=== PATIENT | male | born 1960 | race Caucasian/White ===

== ENCOUNTER → 2018-03-06 | Outpatient (CLI) | payer BC ==
[~2018-03-06] MED LIST: ALBUAER2 INH; ASPI-319 PO; IBUP600T44 PO; LOSA50TA6 PO; OPTIRAY 320 IV PRN; SIMV20TA2 PO; SNG10 PO; UNKNOWN INHALER INH
--- NOTE | 2018-03-06 17:08 | DIAGNOSTIC IMAGING REPORT ---
ABDOMEN AND PELVIS CT WITH IV AND ORAL CONTRAST CT DOSE: HISTORY: Left lower quadrant abdominal pain. TECHNIQUE: Multiaxial CT images of the abdomen and pelvis were performed following the use of intravenous and oral contrast. A dose lowering technique was utilized adhering to the principles of ALARA. COMPARISON STUDY: None. FINDINGS: There is a 3 mm nodule within the base of the right lower lobe on image 31. Small fat-containing right-sided Bochdalek hernia. No pneumoperitoneum. No pneumatosis. No suspicious lytic or blastic osseous lesions. Tiny fat-containing right-sided inguinal hernia. Slightly nodular contour to the liver. This may represent developing cirrhosis. No hepatic or splenic masses. The adrenal glands and pancreas are unremarkable. The kidneys enhance normally. No hydronephrosis. Punctate nonobstructing stone within the upper pole the right kidney. Small bilateral peripelvic renal cysts. Mild bilateral perinephric edema which is likely chronic. Normal bladder. There is a left circumaortic renal vein. No retroperitoneal lymphadenopathy. Focal bowel wall thickening within the distal sigmoid colon with an inflamed diverticulum and minimal pericolonic fat stranding. This is consistent with acute diverticulitis. No perforation or abscess at this time. No evidence for bowel obstruction. Normal appendix. IMPRESSION: 1. Acute distal sigmoid diverticulitis. No perforation or abscess. Follow-up colonoscopy is suggested once the patient's diverticulitis has resolved to exclude the less likely possibility of an underlying lesion. 2. No bowel obstruction. 3. Normal appendix. 4. Right-sided nephrolithiasis. No hydronephrosis. 5. Slightly nodular contour to the liver. This may represent developing cirrhosis. 6. Additional findings as described above. Electronically signed by: Fabian Espino M.D. 03/06/2018 5:07 PM Dictated Date/Time: 03/06/2018 4:57 PM
== END | disposition home or self-care (01) ==
LOC: C.CTS 15:53
PROVIDERS: ATTEND Family Medicine
DX: R10.32 Left lower quadrant pain (principal); R19.4 Change in bowel habit; K59.00 Constipation, unspecified; K57.32 Diverticulitis of large intestine without perforation or abscess without bleeding; N20.0 Calculus of kidney

== ENCOUNTER 2019-06-05 06:51 | Inpatient (IN) ==
--- OUTSIDE RECORDS SUMMARY | 2019-06-05 06:54 | External Medical Summary | Continuity of Care Document ---
:1960 Author Name Nadia Fowler, Provider Address Unavailable Unavailable , Care Team Providers Name Role Phone Maxi Fowler, Smooth 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 Refills: 0 Proventil HFA AERS; INHALE 2 PUFFS EVERY 4 HOURS NEEDED Refills: 0 Aspirin 81 MG TABS; TAKE 1 TABLET DAILY. Refills: 0 Metoprolol Succinate ER 50 MG Oral Table t Extended Release 24 Hour; TAKE 2 TABLETS DAILY. Refills: 0 Asmanex (120 Metered Doses) 220 MCG/INH Inhalation Aerosol Powder Breath Activated; INHALE 1 PUFFS TWICE DAILY Refills: 0 Singulair 10 MG Oral Tablet; TAKE 1 TABLET DAILY. Refills: 0 Simvastatin 20 MG Oral Tablet; TAKE 1 TABLET DAILY AT BEDTIM E. Refills: 0 Losartan Potassium TABS Refills: 0 Procedures Procedures not documented Immunizations Td Comments:Approx 2008 Influenza Comments:Approx Mar 2014 Family History Unknown Family Member Family history of diabetes mellitus (V18.0) Status: Active Comments: Family History (Z83.3) Family history of cardiac disorder (V17.49) Status: Active Comments: Family History (Z82.49) Social History - Smoking Status Never smoker Plan of Treatment Planned Observations Planned Goals not documented Results No Known Results Results not documented Encounters Appointment; Smooth German M.D. 24-Jun-2014 10:00 Encounter Diagnosis: Problem not documented
[2019-06-05] MEDS ORDERED: SODIUM CHLORIDE 0.9% 1000ML 1,000 ML IV STA (07:07)
[2019-06-05 07:22] LABS: Basophils # (auto) 0.08 K/uL (0-0.2); Basophils % (auto) 1.2 %; Eosinophils % (auto) 3.1 %; Hematocrit (blood only) 47.1 % (42-52); Hemoglobin 16.7 g/dL (14.0-18.0); Immature Granulocytes # (auto) 0.01 K/uL (0.00-0.02); Immature Granulocytes % (auto) 0.2 %; Lymphocytes # (auto) 2.46 K/uL (1.2-3.4); Mean Corpuscular Hemoglobin 32.1 pg (25-34); Mean Corpuscular Hgb Conc 35.5 g/dL (32-36); Mean Corpuscular Volume 90.6 fL (80-100); Mean Platelet Volume 9.3 fL (7.4-10.4); Monocytes # (auto) 0.71 K/uL (0.11-0.59); Neutrophils # (auto) 3.02 K/uL (1.4-6.5); Neutrophils % (auto) 46.5 %; Platelet Count 332 K/uL (130-400); RDW Coefficient of Variation 12.9 % (11.5-14.5); RDW Standard Deviation 42.6 fL (36.4-46.3); White Blood Count 6.48 K/uL (4.8-10.8)
--- NOTE | 2019-06-05 07:41 | XRay Report ---
XR chest 1V portable CLINICAL HISTORY: 58 years-old Male presenting with Chest Pain, atrial fibrillation. TECHNIQUE: Portable upright AP view of the chest was obtained. COMPARISON: 06/16/2015. FINDINGS: Cardiac silhouette mildly enlarged. Pulmonary vascular may be minimally prominent. No focal opacity. No large effusion or pneumothorax. Degenerative changes of the thoracic spine. Upper abdomen normal. IMPRESSION: 1. Mild cardiomegaly with trace volume overload. No advanced congestive change or pulmonary edema. Electronically signed by: Nicko Santoyo M.D. 06/05/2019 7:40 AM
[2019-06-05 07:42] LABS: Alanine Aminotransferase 46 U/L (12-78); Albumin Level 3.7 gm/dl (3.4-5.0); Aspartate Aminotransferase 21 U/L (15-37); BUN Creatinine Ratio 14.6 (10-20); Blood Urea Nitrogen 16 mg/dl (7-18); Calcium 8.9 mg/dl (8.5-10.1); Carbon Dioxide 29 mmol/L (21-32); Chloride 105 mmol/L (98-107); Est GFR (African American) 89.2; Glucose 115 mg/dl (70-99); Lipase 272 U/L (73-393); Potassium 3.9 mmol/L (3.5-5.1); Sodium 139 mmol/L (136-145)
[2019-06-05 07:53] LABS: Albumin Globulin Ratio 0.9 (0.9-2); Alkaline Phosphatase 102 U/L (45-117); Bilirubin,Total 0.6 mg/dl (0.2-1); Phosphorus 3.2 mg/dl (2.5-4.9); Total Protein 7.7 gm/dl (6.4-8.2); Troponin I < 0.015 ng/ml (0-0.045)
[2019-06-05] MEDS ORDERED: dilTIAZem HCl 5 MG/ML 5 ML VIAL IV STA ×2 (08:51→10:36)
[2019-06-05] MEDS ORDERED: dilTIAZem HCl 125 MG in DEXTROSE 5% 100 ML IV STA (11:48)
--- NOTE | 2019-06-05 12:05 | History & Physical Report ---
Date of Service June 05, 2019 Assessment & Plan (1) Atrial fibrillation with RVR: - Admit to PCU - Continue on cardizem gtt, trial of two doses in the ER without improvement, started gtt in the ER. - Continue metoprolol tartrate 50 mg QAM, valsartan 320 mg QAM, HCTZ 12.5 QAM - Trend troponins, initial set is neg, no concern for cardiac event. - Check 2D echo - EKG reviewed, as above - Consult cardiology, Dr. Mckeon (2) HTN (hypertension): - Continue antihypertensives as above (3) HLD (hyperlipidemia): - Cont atorvastatin 80 mg HS, recheck lipid panel with am labs (4) Obesity (BMI 30.0-34.9): - Diet and exercise to be encouraged upon discharged after Afib breaks (5) Elevated glucose: - Glucose slightly elevated at 115 at time of admission - will recheck A1C with am labs - Allow heart healthy diet CODE: FULL Dispo: From home, likley to remain in the hospital for 1-2 days. History of Present Illness Primary Care Provider: Wilbert Vee MD This is a 58 yo M with PMHx of afib on xarelto about 10 years ago, HTN, HLD, and obesity with BMI of 33.5 who presents to the ER after onset of heart palpitations and not feeling well which started around 5:30AM. His is present at bedside and supports the history. He recognized the fast heart beat and felt that this was like previous episodes of afib. He was previously hospitalized and converted chemically, then was discharged home and had follow up with Dr. Mckeon in cardiology. He denies any lightheadedness, dizziness, chest pain, or shortness of breath. Afib with RVR in EKG with rates in the 150 at time of arrival Other labs appear wnl, glucose slightly elevated at 115. Pt notes he was supposed to have fasting labs for A1C completed soon. Allergies Allergy/AdvReac Type Severity Reaction Status Date / Time No Known Allergies Allergy Mild Unverified 06/05/19 07:33 Home Medications Home Medications Medication Instructions Recorded Confirmed Type albuterol sulfate 2 puff INHALATION Q4H PRN 06/05/19 06/05/19 History aspirin 81 mg PO HS 06/05/19 06/05/19 History atorvastatin 80 mg PO HS 06/05/19 06/05/19 History hydrochlorothiazide 12.5 mg PO QAM 06/05/19 06/05/19 History ibuprofen 200 mg PO Q6H PRN 06/05/19 06/05/19 History metoprolol tartrate 50 mg PO QAM 06/05/19 06/05/19 History montelukast 10 mg PO HS 06/05/19 06/05/19 History valsartan 320 mg PO QAM 06/05/19 06/05/19 History Past Med/Surg History Medical History Episodic atrial fibrillation Family History Other No pertinent family history in first degree relatives Social History Preferred Language: Polish Communication Ability: Effective Summons Server Required: No Beliefs That Will Affect Care: None Current Living Situation: Spouse Other Information That Helps Us Care for You: No Feels Safe at Home: Yes Safety Concerns: Feels Safe At This Time Smoking Status: Never smoker Do You Dip or Chew Tobacco: No ; Second Hand Exposure: No ; Tobacco Cessation Education Requested by Patient: No Hx Alcohol Use: Yes Hx Substance Use: No Review of Systems Review of Systems: Constitutional: No fever, sweats or chills Eyes: No diplopia, no worsening or blurred vision ENT: normal hearing, no trouble swallowing Respiratory: No cough, sputum, dyspnea at rest or on exertion Cardiovascular: No chest pain, tightness or palpitations Abdomen: No pain, nausea, vomiting, diarrhea or constipation Musculoskeletal: No joint pain, calf pain, swelling Neurologic: No weakness, numbness/tingling, or balance problems Psychiatric: No anxiety or depression Skin: No rash or itch Physical Exam Physical Exam: General: awake, alert, no apparent distress, + obese Head: Normocephalic, atraumatic ENT: PERRL, EOMI, no pharyngeal exudate, mucous membranes moist Chest: Clear to auscultation, on room air, no adventitious breath sounds Cardiac: irregularly irregular, rapid with HR ~ 140, no murmur, no JVD Abdominal: NABS x 4 quadrants, soft, nontender to palpation, no rebound, guarding or tenderness Extremities: Normal inspection, no peripheral edema or erythema, calfs nontender to palpation Psych: Normal mood and affect Skin: no rashes Neuro: AAO x 3, strength intact bilaterally and related 5/5, no motor deficits, speech is clear, no peripheral sensory deficits Results & Data Vital Signs (Past 12 Hours) Vital Signs Temp Pulse Pulse Resp BP Pulse Ox 06/05/19 11:01 137 H 13 06/05/19 11:00 99 H 14 133/85 06/05/19 10:45 162 H 21 06/05/19 10:30 142 H 13 121/91 06/05/19 10:15 147 H 17 06/05/19 10:00 147 H 134/73 06/05/19 09:45 145 H 22 06/05/19 09:30 154 H 19 06/05/19 09:15 135 H 11 L 06/05/19 09:09 119 H 06/05/19 09:00 149 H 15 123/82 06/05/19 08:45 163 H 17 06/05/19 08:31 155 H 14 06/05/19 08:30 150 H 14 125/90 06/05/19 08:15 152 H 21 06/05/19 08:01 150 H 15 06/05/19 08:00 147 H 14 06/05/19 07:46 157 H 18 06/05/19 07:44 144 H 14 134/78 06/05/19 07:30 149 H 22 06/05/19 07:23 159 H 06/05/19 07:15 147 H 15 06/05/19 07:09 161 H 13 06/05/19 07:00 36.5 C 89 16 148/79 H 98 Diagnostic Findings XR chest 1V portable CLINICAL HISTORY: 58 years-old Male presenting with Chest Pain, atrial fibrillation. TECHNIQUE: Portable upright AP view of the chest was obtained. COMPARISON: 06/16/2015. FINDINGS: Cardiac silhouette mildly enlarged. Pulmonary vascular may be minimally prominent. No focal opacity. No large effusion or pneumothorax. Degenerative changes of the thoracic spine. Upper abdomen normal. IMPRESSION: 1. Mild cardiomegaly with trace volume overload. No advanced congestive change or pulmonary edema. Code Status & VTE Plan Code Status Full code VTE Prophylaxis Plan VTE Prophylaxis will be ordered: Yes Supervising Physician Co-Signing Physician Notes I supervised Unique Kee PA-C on this patient's care. I examined the patient today independently of her. I discussed the plan of care with her with the plan being as written in her note except for any following changes/exceptions: None. 58yo M w/ hx of remote afib with cardioversion who presents with another episode of afib with RVR. Patient noted palpations at approx. 5:30am this morning. He notes palpitations, but also reports some "dull" ache in the neck and arms bilaterally. He had an episode about 8 years ago and was chemically cardioverted at that time without any further episodes until now. At baseline, he has HTN, but no other Chads-Vasc risk factors, making him a Chads-Vasc of 1. - Will rate-control with beta-chinedu and calcium channel chinedu - Restart Xarelto which he took without issue for several years - Consult Dr. Mckeon, his normal coal chemist. PG Care Time/CCT Total # of Minutes Spent Total Time Spent with Patient: Total time spent is greater than 50% in coordination of care (as documented) at patient's floor/unit and/or counseling patient:
[2019-06-05] MEDS ORDERED: dilTIAZem HCL 30 MG TAB PO ONE (13:43)
[2019-06-05] MEDS ORDERED: ONDANSETRON INJ 2 MG/ML 2 ML VIAL IV PRN (15:16)
[2019-06-05] MEDS ORDERED: IBUPROFEN 200 MG TAB PO PRN (15:16)
[2019-06-05] MEDS ORDERED: ACETAMINOPHEN 325 MG TAB PO PRN (15:16)
--- NOTE | 2019-06-05 16:43 | Emergency Department Note ---
Entered by Schuyler Munguia acting as a scribe for History of Present Illness General Chief complaint: Arrhythmia/Palpitations Stated complaint: AFIB Time Seen by Provider: 06/05/19 07:06 Source: patient History of Present Illness Provider complaint: Palpitations Onset (ago): hour(s) 2 Location: chest Severity: similar to prior episodes Pain Consistency: + constant Maximum Pain Intensity: 2 Current Pain Intensity: 2 Associated symptoms: + shortness of breath and + other (Jaw ache); no cough and no fever/chills The patient is a 58 year old male who presents to the Emergency Room with complaints of constant palpitations that started this morning about 2 hours ago. The patient states that he woke up feeling fine but after he let his dog out and fell back to sleep on the couch, he woke back up feeling the palpitations. The patient has a history of going into Afib one other time in his life 10 years ago. The patient was put on a blood thinner after this episode but is no longer taking it. The patient reports that his symptoms this morning felt similar to this past episode. The patient endorses some shortness of breath with exertion and jaw achiness. The patient rates his symptoms as a 2/10. The patient also mentioned that for the past several weeks he has been overexerting himself and working weekends. Per the , the patient was also exerting himself a lot when he went into Afib for the first time. The patient also recalls that he just fin ished a course of antibiotics for a sinus infection. The patient denies any fevers, chills, cough or congestion. He also denies any history of strokes or blood clots. Home Medications Home Medications Medication Instructions Recorded Confirmed Type albuterol sulfate 2 puff INHALATION Q4H PRN 06/05/19 06/05/19 History aspirin 81 mg PO HS 06/05/19 06/05/19 History atorvastatin 80 mg PO HS 06/05/19 06/05/19 History hydrochlorothiazide 12.5 mg PO QAM 06/05/19 06/05/19 History ibuprofen 200 mg PO Q6H PRN 06/05/19 06/05/19 History metoprolol tartrate 50 mg PO QAM 06/05/19 06/05/19 History montelukast 10 mg PO HS 06/05/19 06/05/19 History valsartan 320 mg PO QAM 06/05/19 06/05/19 History Allergies Allergy/AdvReac Type Severity Reaction Status Date / Time No Known Allergies Allergy Mild Unverified 06/05/19 07:33 Past Med/Surg History Medical History Episodic atrial fibrillation Family History Other No pertinent family history in first degree relatives Social History Preferred Language: [place] Communication Ability: Effective It Programmer Analyst Required: No Beliefs That Will Affect Care: None Current Living Situation: Spouse Feels Safe at Home: Yes Smoking Status: Never smoker Second Hand Exposure: No ; Hx Alcohol Use: Yes Hx Substance Use: No Review of Systems See HPI for pertinent positives & negatives. and A total of 10 systems reviewed and were otherwise negative Physical Exam Vital Signs Vital Signs - 24 hr 06/05/19 07:00 06/05/19 07:07 06/05/19 07:09 Temperature 36.5 C Temperature Source Oral Oral Sepsis Recent Fever Within 48 Hours No Sepsis New/Unexplained Change in Mental Status No Sepsis Action Taken by Nursing No Action Required Pulse Rate 89 161 H Pulse Rate [Apical] Respiratory Rate 16 13 Respiratory Effort / Characteristics Non-Labored Spontaneous Respiratory Depth Normal Respiratory Pattern Regular Blood Pressure 148/79 H Blood Pressure Mean 102 Blood Pressure Position Sitting Pulse Oximetry 98 Oxygen Delivery Method Room Air Room Air 06/05/19 07:15 06/05/19 07:23 06/05/19 07:30 Temperature Temperature Source Sepsis Recent Fever Within 48 Hours Sepsis New/Unexplained Change in Mental Status Sepsis Action Taken by Nursing Pulse Rate 147 H 149 H Pulse Rate [Apical] 159 H Respiratory Rate 15 22 Respiratory Effort / Characteristics Respiratory Depth Respiratory Pattern Blood Pressure Blood Pressure Mean Blood Pressure Position Pulse Oximetry Oxygen Delivery Method 06/05/19 07:44 06/05/19 07:46 06/05/19 08:00 Temperature Temperature Source Sepsis Recent Fever Within 48 Hours Sepsis New/Unexplained Change in Mental Status Sepsis Action Taken by Nursing Pulse Rate 144 H 157 H 147 H Pulse Rate [Apical] Respiratory Rate 14 18 14 Respiratory Effort / Characteristics Respiratory Depth Respiratory Pattern Blood Pressure 134/78 Blood Pressure Mean 96 Blood Pressure Position Pulse Oximetry Oxygen Delivery Method 06/05/19 08:01 06/05/19 08:15 06/05/19 08:30 Temperature Temperature Source Sepsis Recent Fever Within 48 Hours Sepsis New/Unexplained Change in Mental Status Sepsis Action Taken by Nursing Pulse Rate 150 H 152 H 150 H Pulse Rate [Apical] Respiratory Rate 15 21 14 Respiratory Effort / Characteristics Respiratory Depth Respiratory Pattern Blood Pressure 125/90 Blood Pressure Mean 101 Blood Pressure Position Pulse Oximetry Oxygen Delivery Method 06/05/19 08:31 06/05/19 08:45 06/05/19 09:00 Temperature Temperature Source Sepsis Recent Fever Within 48 Hours Sepsis New/Unexplained Change in Mental Status Sepsis Action Taken by Nursing Pulse Rate 155 H 163 H 149 H Pulse Rate [Apical] Respiratory Rate 14 17 15 Respiratory Effort / Characteristics Respiratory Depth Respiratory Pattern Blood Pressure 123/82 Blood Pressure Mean 95 Blood Pressure Position Pulse Oximetry Oxygen Delivery Method 06/05/19 09:09 06/05/19 09:15 06/05/19 09:30 Temperature Temperature Source Sepsis Recent Fever Within 48 Hours Sepsis New/Unexplained Change in Mental Status Sepsis Action Taken by Nursing Pulse Rate 135 H 154 H Pulse Rate [Apical] 119 H Respiratory Rate 11 L 19 Respiratory Effort / Characteristics Respiratory Depth Respiratory Pattern Blood Pressure Blood Pressure Mean Blood Pressure Position Pulse Oximetry Oxygen Delivery Method 06/05/19 09:45 06/05/19 10:00 06/05/19 10:15 Temperature Temperature Source Sepsis Recent Fever Within 48 Hours Sepsis New/Unexplained Change in Mental Status Sepsis Action Taken by Nursing Pulse Rate 145 H 147 H 147 H Pulse Rate [Apical] Respiratory Rate 22 17 Respiratory Effort / Characteristics Respiratory Depth Respiratory Pattern Blood Pressure 134/73 Blood Pressure Mean 93 Blood Pressure Position Pulse Oximetry Oxygen Delivery Method 06/05/19 10:30 06/05/19 10:45 06/05/19 11:00 Temperature Temperature Source Sepsis Recent Fever Within 48 Hours Sepsis New/Unexplained Change in Mental Status Sepsis Action Taken by Nursing Pulse Rate 142 H 162 H 99 H Pulse Rate [Apical] Respiratory Rate 13 21 14 Respiratory Effort / Characteristics Respiratory Depth Respiratory Pattern Blood Pressure 121/91 133/85 Blood Pressure Mean 101 101 Blood Pressure Position Pulse Oximetry Oxygen Delivery Method 06/05/19 11:01 06/05/19 11:15 06/05/19 11:30 Temperature Temperature Source Sepsis Recent Fever Within 48 Hours Sepsis New/Unexplained Change in Mental Status Sepsis Action Taken by Nursing Pulse Rate 137 H 128 H 120 H Pulse Rate [Apical] Respiratory Rate 13 18 13 Respiratory Effort / Characteristics Respiratory Depth Respiratory Pattern Blood Pressure 120/88 Blood Pressure Mean 98 Blood Pressure Position Pulse Oximetry Oxygen Delivery Method 06/05/19 11:45 Temperature Temperature Source Sepsis Recent Fever Within 48 Hours Sepsis New/Unexplained Change in Mental Status Sepsis Action Taken by Nursing Pulse Rate 137 H Pulse Rate [Apical] Respiratory Rate 18 Respiratory Effort / Characteristics Respiratory Depth Respiratory Pattern Blood Pressure Blood Pressure Mean Blood Pressure Position Pulse Oximetry Oxygen Delivery Method GENERAL: Awake, alert, fatigued-appearing, in no distress HENT: Normocephalic, atraumatic. Oropharynx with dry mucous membranes and otherwise unremarkable. EYES: Normal conjunctiva. Sclera non-icteric. NECK: Supple. No nuchal rigidity. FROM. No JVD. RESPIRATORY: Clear to auscultation. CARDIAC: Tachycardic rate, irregular rhythm. Extremities warm and well perfused. Pulses equal. ABDOMEN: Soft, non-distended. No tenderness to palpation. No rebound or guardi ng. No masses. RECTAL: Deferred. MUSCULOSKELETAL: Chest examination reveals no tenderness. The back is symmetrical on inspection without obvious abnormality. There is no CVA tenderness to palpation. No joint edema. LOWER EXTREMITIES: Calves are equal size bilaterally and non-tender. No edema. No discoloration. NEURO: Normal sensorium. No sensory or motor deficits noted. SKIN: No rash or jaundice noted. Course 0723: Past medical records reviewed. The patient was evaluated in room A03, and a complete history and physical examination were performed. 1105: I reevaluated the patient and updated him on results. We also discussed the treatment plan and he is agreeable. 1139: I spoke to Dr. Land [facility] Hospitalist about the patient's case. He is going to accept the patient for further evaluation. Consultations Consultation #1: I spoke to Dr. Emery Ring [facility] Hospitalist about the patient's case. He is going to accept the patient for further evaluation. Time: 11:39 Administered Medications Aspirin (Ecotrin Ectab) 81 mg PO [facility] Stop: 07/05/19 20:59 Last Admin: 06/05/19 21:49 Dose: 81 mg Documented by: [id number] Atorvastatin Calcium (Lipitor) 80 mg PO [facility] Stop: 07/05/19 20:59 Last Admin: 06/05/19 21:49 Dose: 80 mg Documented by: [id number] Montelukast Sodium (Singulair) 10 mg PO HS [facility] Stop: 07/05/19 20:59 Last Admin: 06/05/19 21:50 Dose: 10 mg Documented by: [id number] Discontinued Medications Diltiazem HCl (Cardizem) 15 mg IV NOW STA Stop: 06/05/19 08:52 Last Admin: 06/05/19 09:00 Dose: 15 mg Documented by: [id number] Cosigned by: [id number] Diltiazem HCl (Cardizem) 25 mg IV NOW STA Stop: 06/05/19 10:37 Last Admin: 06/05/19 10:47 Dose: 25 mg Documented by: [id number] Cosigned by: [id number] Diltiazem HCl (Cardizem) 30 mg PO NOW ONE Stop: 06/05/19 13:44 Last Admin: 06/05/19 13:51 Dose: 30 mg Documented by: [id number] Sodium Chloride (Nss 1000ml) 1,000 mls @ 999 mls/hr IV .Q1H1M STA Stop: 06/05/19 08:07 Last Infusion: 06/05/19 09:04 Dose: 0 mls/hr Documented by: [id number] Admin: 06/05/19 07:56 Dose: 999 mls/hr Documented by: [id number] Diltiazem HCl 125 mg/ Dextrose 125 mls @ 0 mls/hr IV .Q0M STA; Protocol Stop: 06/05/19 11:49 Last Titration: 06/05/19 14:20 Dose: 0 mg/hr, 0 mls/hr Documented by: [id number] Titration: 06/05/19 14:10 Dose: 0 mg/hr, 0 mls/hr Documented by: [id number] Admin: 06/05/19 12:00 Dose: 5 mg/hr, 5 mls/hr Documented by: [id number] Cosigned by: [id number] Medical Decision Making Differential Diagnosis Differential: NSR, SVT, PACs, PVCs, Cardiac Dysrhythmia, Endocrine Dysfunction, Electrolyte/Metabolic Abnormality, Pulmonary Embolism, Infectious, GI, amongst other pathologies entertained. Medical Records Attestation: I reviewed the patient's medical records. Home Medications Current Medication List: was personally reviewed by me Laboratory Data Attestation: I reviewed the patient's lab results. Result diagrams: 06/05/19 07:13 06/05/19 07:13 Lab Results 06/05/19 06/05/19 Range/Units 07:13 07:13 WBC 6.48 (4.8-10.8) K/uL RBC 5.20 (4.7-6.1) M/uL Hgb 16.7 (14.0-18.0) g/dL Hct 47.1 (42-52) % MCV 90.6 (80-100) fL MCH 32.1 (25-34) pg MCHC 35.5 (32-36) g/dL RDW Std Deviation 42.6 (36.4-46.3) fL RDW Coeff of Sreekanth 12.9 (11.5-14.5) % Plt Count 332 (130-400) K/uL MPV 9.3 (7.4-10.4) fL Immature Gran % (Auto) 0.2 % Neut % (Auto) 46.5 % Lymph % (Auto) 38.0 % [place] % (Auto) 11.0 % Eos % (Auto) 3.1 % Baso % (Auto) 1.2 % Immature Gran # (Auto) 0.01 (0.00-0.02) K/uL Neut # (Auto) 3.02 (1.4-6.5) K/uL Lymph # (Auto) 2.46 (1.2-3.4) K/uL [place] # (Auto) 0.71 H (0.11-0.59) K/uL Eos # (Auto) 0.20 (0-0.5) K/uL Baso # (Auto) 0.08 (0-0.2) K/uL Sodium 139 (136-145) mmol/L Potassium 3.9 (3.5-5.1) mmol/L Chloride 105 (98-107) mmol/L Carbon Dioxide 29 (21-32) mmol/L Anion Gap 5.0 (3-11) BUN 16 (7-18) mg/dl Creatinine 1.06 (0.6-1.4) mg/dl Est Cr Clr Drug Dosing Not Reportable Est GFR ( Amer) 89.2 Est GFR (Non-Af Amer) 77.0 BUN/Creatinine Ratio 14.6 (10-20) Glucose 115 H (70-99) mg/dl Calcium 8.9 (8.5-10.1) mg/dl Phosphorus 3.2 (2.5-4.9) mg/dl Magnesium 2.0 (1.8-2.4) mg/dl Total Bilirubin 0.6 (0.2-1) mg/dl AST 21 (15-37) U/L ALT 46 (12-78) U/L Alkaline Phosphatase 102 (45-117) U/L Troponin I < 0.015 (0-0.045) ng/ml Total Protein 7.7 (6.4-8.2) gm/dl Albumin 3.7 (3.4-5.0) gm/dl Globulin 4.0 (2.5-4.0) gm/dl Albumin/Globulin Ratio 0.9 (0.9-2) Lipase 272 (73-393) U/L TSH 1.510 (0.300-4.500) uIu/ml Imaging Data Radiologist's Impression: Radiology results as stated below per my review and the radiologist's interpretation: XR chest 1V portable CLINICAL HISTORY: 58 years-old Male presenting with Chest Pain, atrial fibrillation. TECHNIQUE: Portable upright AP view of the chest was obtained. COMPARISON: 06/16/2015. FINDINGS: Cardiac silhouette mildly enlarged. Pulmonary vascular may be minimally prominent. No focal opacity. No large effusion or pneumothorax. Degenerative changes of the thoracic spine. Upper abdomen normal. IMPRESSION: 1. Mild cardiomegaly with trace volume overload. No advanced congestive change or pulmonary edema. Electronically signed by: Nicko Santoyo M.D. 06/05/2019 7:40 AM ECG Data Attestation: I personally reviewed and interpreted this ECG as follows: Indication: + palpitations Rate (beats per minute): 142 Rhythm: + atrial fibrillation (with RVR) ECG Findings: + PVCs and + Other (Non specific ST & T wave abnormalities. QTC of 467) Blood Pressure Blood Pressure Findings: Elevated blood pressure Blood Pressure Disposition: Referred to patients primary care provider DONNA Rutherford The patient is a pleasant 58-year-old gentleman with a past medical history of hypertension, hyperlipidemia with a prior history of A. fib no longer on anticoagulation who presents emergency department with palpitations that he noticed this morning around 5 AM when he woke up per hpi. On arrival the patient is no acute distress, afebrile with heart rate in the 160s in A. fib but vital signs otherwise stable. On exam the patient appears clinically dry. Exam is otherwise unremarkable. EKG demonstrates A. fib with RVR with nonspecific ST abnormalities likely related to rate. Chest x-ray negative for acute process. WBC, H/H, platelets wnl. Chemistry without acidosis. LFTs and electrolytes unremarkable. Troponin negative. Patient was given 15 mg of ID diltiazem with transient improvement but return of heart rate to the 160s. Subsequently the patient was given 25 milligrams of IV diltiazem but with improvement only to 130s. Therefore given the patient's persistent RVR patient was ordered for diltiazem drip. Reasonable to proceed with admission. Patient was agreeable with this. Case was discussed with Dr. Land, [facility] hospitalist, who evaluate the patient for admission. Impression & Plan Atrial fibrillation with RVR, Palpitations, HTN (hypertension), History of hyperlipidemia Critical Care Time Critical Care Time: Yes Total Critical Care Time: 45 I have personally spent greater than 45 minutes of critical care time in the direct management of this patient. This includes bedside care, interpretation of diagnostic studies, and testing, discussion with consultants, patient, and family members, and other required patient management activities. This 45 minutes is in excess of all separately billable procedures. Discharge Plan Visit Data *Final* Discharge Date/Time: 06/05/19 12:45 Chief Complaint: Arrhythmia/Palpitations Stated Complaint: AFIB ED Provider: Wes Mendoza Discharge Problem: Atrial fibrillation with RVR, Palpitations, HTN (hypertension), History of hyperlipidemia Patient Disposition: Admitted As Inpatient Discharge Instructions Interventions: ED Discharge Assessment Last Done: 06/05/19 12:45 The scribe's documentation has been prepared under my direction and personally reviewed by me in its entirety. I confirm that the note above accurately reflects all work, treatment, procedures, and medical decision making performed by me.
[2019-06-05] MEDS ORDERED: MONTELUKAST SODIUM 10 MG TABLET PO SCH (21:00)
[2019-06-05] MEDS ORDERED: ATORVASTATIN 40 MG TAB PO SCH (21:00)
[2019-06-05] MEDS ORDERED: ASPIRIN 81 MG ECTAB PO SCH (21:00)
[2019-06-06 07:22] LABS: Hematocrit (blood only) 46.7 % (42-52); Hemoglobin 16.1 g/dL (14.0-18.0); Mean Corpuscular Hemoglobin 31.2 pg (25-34); Mean Corpuscular Hgb Conc 34.5 g/dL (32-36); Mean Corpuscular Volume 90.5 fL (80-100); Mean Platelet Volume 9.4 fL (7.4-10.4); Platelet Count 315 K/uL (130-400); RDW Coefficient of Variation 12.9 % (11.5-14.5); RDW Standard Deviation 42.4 fL (36.4-46.3); Red Blood Count 5.16 M/uL (4.7-6.1); White Blood Count 7.32 K/uL (4.8-10.8)
[2019-06-06 07:51] LABS: Estimated Average Glucose 114 mg/dl; Hemoglobin A1C 5.6 % (4.5-5.6)
[2019-06-06 07:56] LABS: Albumin Level 3.6 gm/dl (3.4-5.0); BUN Creatinine Ratio 12.6 (10-20); Creatinine Clr Calc Pharmacy 79.3 ml/min; Est GFR (African American) 76.8; Est GFR (Non-African American) 66.3; Potassium 3.5 mmol/L (3.5-5.1)
[2019-06-06 07:58] LABS: Albumin Globulin Ratio 0.9 (0.9-2); Bilirubin,Total 0.8 mg/dl (0.2-1); Globulin 3.9 gm/dl (2.5-4.0); Total Protein 7.5 gm/dl (6.4-8.2)
[2019-06-06] MEDS ORDERED: hydroCHLOROthiazide 25 MG TAB PO SCH (09:00)
[2019-06-06] MEDS ORDERED: VALSARTAN 80 MG TAB PO SCH (09:00)
[2019-06-06] MEDS ORDERED: METOPROLOL TARTRATE 50 MG TAB PO SCH (09:00)
[2019-06-06] MEDS ORDERED: METOPROLOL SUCC 25MG EXT REL TAB PO ONE (09:30)
--- NOTE | 2019-06-06 09:52 | Consultation Report ---
DATE OF CONSULTATION: 06/06/2019 DATE OF CONSULTATION: 06/06/2019 REQUESTING: Unique Kee. WASTE DISPOSAL LEAKAGE TESTER: Karlo Mckeon DO, [facility]. REASON FOR CONSULTATION: Paroxysmal atrial fibrillation. Dear Unique, Thank you for requesting cardiology consultation on Schuyler with regards to his paroxysmal atrial fibrillation. He notes he woke yesterday about 5:15 in the morning and let the dog out. He then brought the dog back in and he was sort of in and out of sleep, sitting on the couch watching TV and he notes all of a sudden he felt his heart racing. This was similar to an episode he had back in 2011. In fact, the episode was very similar in the sense that with both episodes, he was significantly sleep deprived, which then led atrial fibrillation. He notes in the last 3 weeks, he has been working extended hours and getting small amounts of sleep and not sleeping well. He notes work has been so busy that he has been working to a point of exhaustion. He does snore at night. He denies significant daytime somnolence. He denies any chest pain, chest pressure, chest heaviness with activity, he can climb multiple flights of stairs without any difficulty. 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 His functional capacity is stable. He denies any lightheadedness or dizziness, presyncope or syncope, lower extremity edema, symptoms of claudication. His appetite is stable. His weight is stable. Denies any bleeding, bruising, dark stools or black stools, fevers, chills, sweats, cough, productive sputum. This morning, he feels back to himself. He did convert in the Emergency Room with diltiazem back to sinus rhythm. Overnight, he has maintained his normal rhythm. He did not have any pauses when he converted. The rest of complete review of systems is otherwise negative. PAST MEDICAL HISTORY: 1. Paroxysmal atrial fibrillation in 2011 and again in May 2019 with a CHADS2-VASc score of 1, being hypertension. 2. Hypertension. 3. Obesity. 4. Hyperlipidemia, on statin therapy. 5. Echocardiogram this admission with normal biventricular size and function, mild left atrial enlargement. FAMILY HISTORY: His mom is . She had diabetes and hypertension. His dad at the age of 64 secondary to heart attacks and strokes. SOCIAL HISTORY: He denies any tobacco. 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 He does consume alcohol occasionally. ALLERGIES: BEE STINGS, CATS, LISINOPRIL CAUSED A COUGH. There is a note in the [place] chart that HYDROCHLOROTHIAZIDE CAUSED JAW CRAMPING. MEDICATIONS: Reviewed in electronic medical record. PHYSICAL EXAMINATION: GENERAL: He is awake, alert, oriented x3. He is in no acute distress. He looks his stated age. VITAL SIGNS: His heart rate is 68, respirations 19, blood pressure 156/82, his pulse ox is 95% on room air. HEENT: 2+ carotid upstrokes, no evidence of carotid bruits. Jugular venous pressure appeared normal. His sclerae is anicteric. His hearing is normal. LUNGS: Clear to auscultation bilaterally. No rales, rhonchi or wheezing. HEART: Regular rate and rhythm. No appreciable murmurs, rubs or gallops. ABDOMEN: Soft, nontender, nondistended. Positive bowel sounds. EXTREMITIES: No clubbing, cyanosis or edema. PSYCHIATRIC: His affect appeared appropriate. DIAGNOSTIC STUDIES: His troponin is minimally elevated secondary to demand ischemia. LABORATORY STUDIES: Sodium 137, potassium 3.5, BUN 15, creatinine 1.2. His LDL was 75, HDL 49, triglycerides were 105. His TSH is normal. Hemoglobin of 16, platelet count of 315. Chest x-ray, mild cardiomegaly, trace volume overload. EKG and echocardiogram were reviewed in detail. Admission EKG: Atrial fibrillation with a rapid ventricular response, nonspecific ST changes. IMPRESSION: 1. Paroxysmal atrial fibrillation with episodes in 2011 and 05/2019 with a CHADS2-VASc score of 1. Likely secondary to profound fatigue and exhaustion. 2. Normal biventricular size and function. 3. Minimal troponin elevation secondary to demand ischemia. 4. Mild left atrial enlargement by echo. 5. Hypertension. 6. Obesity. He is doing well from my standpoint, he is back in sinus rhythm. He is taking short acting metoprolol tartrate in the morning. I suggested that we switch it to metoprolol succinate and have him take it at night in case it causes fatigue. We will also increase the dose from 50 mg to 75 mg. His blood pressures at home remain elevated, he had recently added hydrochlorothiazide. He is maxed out on valsartan. If necessary as an outpatient, we can add amlodipine to his medical regimen. I discussed the need to take care of himself and not work so hard. We also discussed the need for weight loss which Dr. Vee had discussed with him as an outpatient. He did inquire as to whether he is at risk for recurrent AFib and I discussed with him the fact that his left atrium is only mildly dilated is reassuring. Time will tell as to whether he is going to have more frequent episodes of AFib. His episode so far have been very infrequent and it is possible will go another number of years for having another event. Given his CHADS2-VASc score of 1, he does not need to be discharged on anticoagulation and he was in AFib only approximately 9 hours. In addition, there is data now that suggests that aspirin has little benefit in patients with atrial fibrillation and based on the primary prevention guidelines, he does not need aspirin either; therefore, this can be discontinued. We will arrange for outpatient followup. He can be discharged from my standpoint. I changed his medications in the electronic medical record. ANGELO
--- NOTE | 2019-06-06 11:23 | Discharge Summary ---
Date of Service date of admission - June 05, 2019 date of discharge - June 06, 2019 Admission HPI Per Admitting Provider This is a 58 yo male with PMHx of afib on xarelto about 10 years ago, HTN, Hyperlipidemia, and obesity with BMI of 33.5 who presents to the ER after onset of heart palpitations and not feeling well which started around 5:30AM. His is present at bedside and supports the history. He recognized the fast heart beat and felt that this was like previous episodes of afib. He was previously hospitalized and converted chemically, then was discharged home and had follow up with Dr. Mckeon in [facility]. He denies any lightheadedness, dizziness, chest pain, or shortness of breath. Afib with RVR on EKG with rates in the 150 at time of arrival. Other labs appear wnl, glucose slightly elevated at 115. Principal Diagnosis atrial fibrillation with RVR s/p spontaneous cardioversion to NSR Discharge Exam Constitutional well developed, well nourished and + obese; no acute distress ENMT external ear and nose normal, oropharynx normal Respiratory normal respiratory effort, lungs clear to auscultation Cardiovascular Rate/Rhythm: regular rate and regular rhythm Heart Sounds: normal S1 and normal S2; no murmur Vessels: posterior tibial pulses present and dorsalis pedis pulses present; no JVD Extremities: no edema Gastrointestinal (Abdomen) normal bowel sounds, soft, nontender, no hepatosplenomegaly Psychiatric A+Ox3, euthymic affect Discharge Data Allergies Allergy/AdvReac Type Severity Reaction Status Date / Time No Known Allergies Allergy Mild Unverified 06/05/19 07:33 Consultations cardiology - Karlo Mckeon DO Procedures Performed echocardiogram: * EF 60-65% * no regional wall motion abnormalities * mild left atrial enlargement * normal valve function Hospital Course (1) Atrial fibrillation with RVR: RESOLVED. Upon admission he required cardizem infusion briefly and spontaneously cardioverted back to normal sinus rhythm shortly after admission. He remained in NSR for the remainder of his stay. Troponin was minimally elevated at 0.110 likely due to myocardial demand ischemia in the setting of the rapid a.fib rather than an ACS. Echocardiogram was performed revealing preserved EF and normal valve function. He was seen in consult by Dr Karlo Mckeon from [facility] who recommended the following - * changing his metoprolol to succinate and increasing the dose to 75mg once daily * discontinuation of aspirin therapy * systemic anticoagulation was NOT advised as his CHADS-VASc score was only 1 He will follow-up with Dr Mckeon within a month of discharge in the [facility] clinic. (2) HTN (hypertension): Cont metoprolol xl, HCTZ, and valsartan. (3) HLD (hyperlipidemia): Cont atorvastatin 80 mg HS. LDL on lipid profile check was 75. (4) Obesity (BMI 30.0-34.9): BMI 33.5 (5) Elevated glucose: Hemoglobin a1c was 5.6%. Thus, he is still in a normal range. However this bears close annual or bi-annual surveillance in light of pre-DM and DM risk factors. (6) Elevated troponin: Peak troponin was 0.110. This was felt to be due to myocardial demand ischemia in the setting of rapid a.fib rather than a true ACS. He never had ischemic symptoms and EKG did not show ischemic ST changes. Total Time Total Time Spent Total Time Spent (In Minutes): 40 Total Time Includes: Examination of the Patient, Discharge Planning and Medication Reconciliation Discharge Plan Discharge Items Patient Disposition: Home - Self-Care Reason For Visit: Rapid Atrial fibrillation Discharge Diagnosis: Atrial Fibrillation - resolved; spontaneous conversion back to normal sinus rhythm. Activity: Resume your previous activity Non-emergency contact: Primary Care Provider and Final Assembly Inspector Call non-emergency contact if: you have any medication questions and your symptoms worsen Follow-up/Referrals: Wilbert Vee MD [Primary Care Provider] - Karlo Mckeon DO [Physician] - (see Dr Mckeon in 1 month ) Diet: Heart Healthy Addtl Attending Provider Instructions: You were admitted for rapid atrial fibrillation. Fortunately you spontaneously converted to normal rhythm early within your stay. Following conversion you stayed in normal rhythm until time of discharge. Your echocardiogram was normal with good heart function and normal valves. Dr Mckeon from [facility] saw you in consult and recommended - 1. TAKE metoprolol xl 75mg once daily. This is for your heart and blood pressure. New prescription sent to [facility] for you. Please discontinue your old metoprolol as you will now be taking an extended release version. 2. STOP your aspirin. 3. You do NOT need to take anticoagulation (blood thinners) for your a.fib. Follow-up -- see separate section Return to [facility] if -- * you have rapid heart beating/heart fluttering/palpitations * you have chest pain * you have shortness of breath * any other concerns Pending Studies at Discharge: No Stand-Alone Forms: My [facility], Smoking Cessation Medications and DC Order Prescriptions: New metoprolol succinate 25 mg tablet extended release 24 hr 75 mg PO DAILY Qty: 90 RF: 3 Continued atorvastatin 80 mg tablet 80 mg PO HS RF: 0 valsartan 320 mg tablet 320 mg PO QAM RF: 0 hydrochlorothiazide 12.5 mg capsule 12.5 mg PO QAM RF: 0 ibuprofen 200 mg Tablet 200 mg PO Q6H PRN (Reason: Pain) RF: 0 albuterol sulfate 90 mcg/actuation HFA aerosol inhaler 2 puff inhalation Q4H PRN (Reason: Shortness Of Breath) RF: 0 montelukast 10 mg tablet 10 mg PO HS RF: 0 Discontinued aspirin 81 mg Tablet,Delayed Release (Dr/Ec) 81 mg PO HS RF: 0 Discharge Orders: Discharge Order (Routine); Ordered 06/06/19 Ordered By: Wilbert Godfrey/Other Patient Handouts: ED Afib Admission Data Admit Date/Time: 06/05/19 11:46 Attending Provider: Wilbert Jack Admit Provider: Haris Land Primary Care Provider: Wilbert Vee Other Providers: Haris Land ; Karlo Mckeon Other Interventions: Discharge Summary Assessment (RN) Last Done: 06/06/19 11:36 DC Date/Time DO NOT enter until pt leaves facility: 06/06/19 12:05
[2019-06-06] MEDS ORDERED: METOPROLOL SUCC 50MG EXT REL TAB PO SCH (21:00)
== END 2019-06-06 12:05 | disposition home or self-care (01) | DRG 309 ==
LOC: ED 06:51 → 2S 11:46 → SUATTDRO 11:46 → 2S 12:45

== ENCOUNTER 2025-06-12 05:00 | Inpatient (IN) ==
[2025-06-12] MEDS: SODIUM CHLORIDE 0.9% 1,000 ML IV STA (05:15)
[2025-06-12] MEDS: STAT IV Infusion **Titration per Protocol STA (05:26)
--- NOTE | 2025-06-12 05:33 | Emergency Department Note ---
History of Present Illness General Chief complaint: Cardiac Assessment Stated complaint: AFIB Time Seen by Provider: 06/12/25 05:06 History of Present Illness This 64-year-old male with a history of paroxysmal atrial fibrillation presents to the ER complaining of racing heart and jaw pain since 3:30 AM. No blood thinners. Patient denies chest pain, dyspnea, nausea, vomiting, diaphoresis. No alcohol or drug use. Home Medications Medication Instructions Recorded Confirmed Type atorvastatin 80 mg tablet 80 mg PO HS 06/05/19 06/12/25 History metoprolol succinate 25 mg 75 mg (3 x 25 mg) PO DAILY #90 tabs 06/06/19 06/12/25 Rx tablet,extended release 24 hr Bacillus coagulans-inulin 1 1 cap PO DAILY 05/27/20 06/12/25 History billion cell-250 mg capsule (Probiotic Formula (inulin)) epinephrine 0.3 mg/0.3 mL 0.3 mg IM UD PRN Anaphylaxis 05/27/20 06/12/25 History injection, auto-injector magnesium aspartate HCl 61 mg (615 61 mg PO DAILY 05/27/20 06/12/25 History mg) tablet,delayed release budesonide-formoterol HFA 160 2 puff inhalation Q12H 08/05/24 06/12/25 History mcg-4.5 mcg/actuation aerosol inhaler (Symbicort) bupropion HCl 150 mg 24 hr tablet, 150 mg PO QAM 08/06/24 06/12/25 History extended release chlorthalidone 25 mg tablet 25 mg PO DAILY 08/06/24 06/12/25 History cholecalciferol (vitamin D3) 25 25 mcg PO DAILY 06/12/25 06/12/25 History mcg (1,000 unit) capsule (Vitamin D3) ciclopirox 0.77 % topical cream 1 applic topical BID 06/12/25 06/12/25 History ciclopirox 8 % topical solution 1 applic topical DAILY 06/12/25 06/12/25 History dupilumab 300 mg/2 mL subcutaneous 300 mg subcut DIRECTED 06/12/25 06/12/25 History pen injector (Dupixent) montelukast 10 mg tablet 10 mg PO DAILY PRN SOB 06/12/25 06/12/25 History Allergies Allergy/AdvReac Type Severity Reaction Status Date / Time animal dander Allergy Unknown Verified 06/12/25 06:50 bee venom protein (honey bee) Allergy Unknown Verified 06/12/25 06:50 lisinopril Allergy Unknown Verified 06/12/25 06:50 No Known Drug Allergies Allergy Unknown Verified 06/12/25 06:50 tree and shrub pollen Allergy Unknown Verified 06/12/25 06:50 Past Med/Surg History Problem List (Updated 06/12/25 @ 17:30 by FORTINO Serrano) Chest pain Asthmatic bronchitis Hypomagnesemia Hypokalemia Atrial fibrillation with rapid ventricular response (Acute) Elevated IgE level Obstructive lung disease Seasonal allergic rhinitis Allergic rhinitis Severe persistent asthma Sleep apnea Elevated troponin Medical History (Updated 06/12/25 @ 17:30 by FORTINO Serrano) Episodic atrial fibrillation Family History Other No pertinent family history in first degree relatives Social History Smoking Status: Never smoker Second Hand Exposure: No; Do You Dip or Chew Tobacco: No; Hx Alcohol Use: Yes Hx Substance Use: No Preferred Language: Slovenian Communication Ability: Effective Set Up Mold Technician Required: No Beliefs That Will Affect Care: None Current Living Situation: Spouse Feels Safe at Home: Yes Assistive Devices: None Review of Systems A total of 10 systems reviewed and were otherwise negative Physical Exam Vital Signs Vital Signs - 24 hr 06/12/25 05:02 06/12/25 05:11 06/12/25 05:12 Temperature 37 C Temperature Source Temporal Artery Scan Pulse Rate 120 H 119 H 150 H Pulse Rate [Apical] Pulse Rate from SpO2 Sensor Pulse Rhythm Regular Pulse Strength Normal Respiratory Rate 19 17 Respiratory Effort / Characteristics Non-Labored Spontaneous Respiratory Depth Normal Respiratory Pattern Regular Blood Pressure 110/82 Blood Pressure [Right Arm] Blood Pressure Mean 93 Blood Pressure Mean [Right Arm] Blood Pressure Position Sitting Pulse Oximetry 96 95 Oxygen Delivery Method Room Air Room Air Sepsis Recent Fever Within 48 Hours No Sepsis New/Unexplained Change in Mental Status N/A Sepsis Action Taken by Nursing No Action Required 06/12/25 05:15 06/12/25 05:15 06/12/25 05:30 Temperature Temperature Source Pulse Rate 107 H 109 H Pulse Rate [Apical] 105 H Pulse Rate from SpO2 Sensor 107 H Pulse Rhythm Pulse Strength Respiratory Rate 14 16 17 Respiratory Effort / Characteristics Non-Labored Spontaneous Respiratory Depth Normal Respiratory Pattern Regular Blood Pressure 96/72 L 96/74 L Blood Pressure [Right Arm] 96/72 L Blood Pressure Mean 80 81 Blood Pressure Mean [Right Arm] 80 Blood Pressure Position Pulse Oximetry 95 94 94 Oxygen Delivery Method Room Air Room Air Room Air Sepsis Recent Fever Within 48 Hours Sepsis New/Unexplained Change in Mental Status Sepsis Action Taken by Nursing 06/12/25 05:45 06/12/25 05:56 06/12/25 06:00 Temperature Temperature Source Pulse Rate 111 H Pulse Rate [Apical] 126 H 115 H Pulse Rate from SpO2 Sensor 89 Pulse Rhythm Pulse Strength Respiratory Rate 16 18 16 Respiratory Effort / Characteristics Non-Labored Spontaneous Non-Labored Spontaneous Respiratory Depth Normal Normal Respiratory Pattern Regular Regular Blood Pressure 85/69 L Blood Pressure [Right Arm] 117/72 124/95 Blood Pressure Mean 74 Blood Pressure Mean [Right Arm] 87 104 Blood Pressure Position Pulse Oximetry 94 95 95 Oxygen Delivery Method Room Air Room Air Room Air Sepsis Recent Fever Within 48 Hours Sepsis New/Unexplained Change in Mental Status Sepsis Action Taken by Nursing 06/12/25 06:18 06/12/25 06:45 Temperature Temperature Source Pulse Rate Pulse Rate [Apical] 117 H 126 H Pulse Rate from SpO2 Sensor Pulse Rhythm Pulse Strength Respiratory Rate 17 16 Respiratory Effort / Characteristics Non-Labored Spontaneous Non-Labored Spontaneous Respiratory Depth Normal Normal Respiratory Pattern Regular Regular Blood Pressure Blood Pressure [Right Arm] 116/90 123/75 Blood Pressure Mean Blood Pressure Mean [Right Arm] 98 91 Blood Pressure Position Pulse Oximetry 97 98 Oxygen Delivery Method Room Air Room Air Sepsis Recent Fever Within 48 Hours Sepsis New/Unexplained Change in Mental Status Sepsis Action Taken by Nursing VITALS: Vitals are noted on the nurse's note and reviewed by myself. Vital signs tachycardic. GENERAL: Pleasant male, in no acute distress, nondiaphoretic, well-developed well-nourished. SKIN: Capillary reflex less than 2 seconds. HEENT: Normocephalic. PERRLA. EOMI. Nares patent. Mucous membranes moist. Neck is supple without nuchal rigidity. HEART: Tachycardic irregularly irregular LUNGS: Clear to auscultation bilaterally without wheezes, rales or rhonchi. No retractions or accessory muscle use. ABDOMEN: Positive bowel sounds x 4. Normal tympanic percussion. Soft, nontender, without masses or organomegaly. Samuels sign negative. No guarding or rebound tenderness. no CVA tenderness MUSCULOSKELETAL: No gross musculoskeletal defects. NEURO: Patient was alert and oriented to person place and time. No focal neurological deficits. Course Administered Medications Aspirin (Aspirin 81 Mg Ectab) 81 mg PO QAM [facility] Stop: 07/12/25 18:29 Last Admin: 06/12/25 19:05 Dose: 81 mg Documented By: IBIS Fluticasone/Vilanterol (Fluticasone/Vilanterol 200/25mcg 14 Puffs/Inhaler) 1 puffs INH DAILY [facility]; Protocol Stop: 07/12/25 08:59 Last Admin: 06/12/25 10:03 Dose: 1 puffs Documented By: CINDY Heparin Sodium/Dextrose (Heparin 58910 Unit/500 Ml D5w) 25,000 units in 500 mls @ 29 mls/hr IV .[id number] SINTIA; Protocol Stop: 07/12/25 08:56 Last Titration: 06/12/25 18:56 Dose: 1,450 units/hr, 29 mls/hr Documented By: salvador Co-signed By: YOLA Admin: 06/12/25 09:19 Dose: 1,450 units/hr, 29 mls/hr Documented By: CINDY Co-signed By: EUSEBIO Lactobacillus Acidophilus (Advanced Probiotic 625 Mg Capsule) 625 mg PO DAILY [facility] Stop: 07/12/25 09:29 Last Admin: 06/12/25 10:03 Dose: 625 mg Documented By: CINDY Metoprolol Succinate (Metoprolol Succ 25mg Ext Rel Tab) 75 mg PO DAILY [facility] Stop: 07/12/25 08:59 Last Admin: 06/12/25 10:04 Dose: 75 mg Documented By: CINDY Metoprolol Tartrate (Metoprolol Tartrate 1 Mg/Ml Vial) 5 mg IV Q4 PRN PRN Reason: Tachycardia Stop: 07/12/25 08:56 Last Admin: 06/12/25 17:31 Dose: 5 mg Documented By: Admin: 06/12/25 11:13 Dose: 5 mg Documented By: CINDY Rosuvastatin Calcium (Rosuvastatin Calcium 20 Mg Tab) 20 mg PO HS [facility] Stop: 07/12/25 20:59 Last Admin: 06/12/25 21:10 Dose: 20 mg Documented By: salvador Discontinued Medications Diltiazem HCl (Diltiazem Hcl 5 Mg/Ml 5 Ml Vial) Confirm Administered Dose 25 mg IV .STK-MED ONE Stop: 06/12/25 05:10 Last Admin: 06/12/25 05:18 Dose: Not Given Documented By: SHAR Diltiazem HCl (Diltiazem Hcl 5 Mg/Ml 5 Ml Vial) 20 mg IV NOW STA Stop: 06/12/25 05:12 Last Admin: 06/12/25 05:18 Dose: 20 mg Documented By: SHAR Co-signed By: CHICHI Sodium Chloride (Nss) 1,000 mls @ 999 mls/hr IV .Q1H1M STA Stop: 06/12/25 06:11 Last Infusion: 06/12/25 05:50 Dose: Infused Documented By: Admin: 06/12/25 05:15 Dose: 999 mls/hr Documented By: FIDE Diltiazem HCl 125 mg/ Dextrose 125 mls @ 5 mls/hr IV .Q24H SINTIA; Protocol Stop: 07/12/25 05:14 Last Admin: 06/12/25 05:51 Dose: Not Given Documented By: FIDE Sodium Chloride (Nss) 1,000 mls @ 999 mls/hr IV .Q1H1M ONE Stop: 06/12/25 06:54 Last Infusion: 06/12/25 07:34 Dose: Infused Documented By: Admin: 06/12/25 05:55 Dose: 999 mls/hr Documented By: FIDE Potassium Chloride (K Jun / Wtr) 10 meq in 100 mls @ 100 mls/hr IV ONE STA Stop: 06/12/25 07:47 Last Infusion: 06/12/25 08:39 Dose: Infused Documented By: Admin: 06/12/25 07:34 Dose: 100 mls/hr Documented By: MMF Magnesium Sulfate/Dextrose (Magnesium Sulfate / D5w) 1 gm in 100 mls @ 50 mls/hr IV ONE STA Stop: 06/12/25 08:47 Last Infusion: 06/12/25 10:52 Dose: Infused Documented By: Admin: 06/12/25 08:50 Dose: 50 mls/hr Documented By: CINDY Digoxin 250 mcg/ Syringe 10 mls @ 2 mls/min IV NOW STA Stop: 06/12/25 18:19 Last Admin: 06/12/25 19:01 Dose: 2 mls/min Documented By: IBIS Miscellaneous (Stat Iv Infusion Titration Per Protocol) 1 each N/A NOW STA Stop: 06/12/25 05:12 Last Admin: 06/12/25 05:26 Dose: Not Given Documented By: FIDE Potassium Chloride (Potassium Chloride Crtab 20 Meq Tabcr) 40 meq PO NOW STA Stop: 06/12/25 06:30 Last Admin: 06/12/25 06:45 Dose: 40 meq Documented By: FIDE Critical Care Time Critical Care Time: Yes Total Critical Care Time: 35 I have personally spent 35 minutes of critical care time in the direct management of this patient. This includes bedside care, interpretation of diagnostic studies, and testing, discussion with consultants, patient, and family members, and other required patient management activities. This 35 minutes is in excess of all separately billable procedures. Medical Decision Making Medical Records Attestation: I reviewed the patient's medical records. Home Medications Current Medication List: was personally reviewed by me Laboratory Data Attestation: I reviewed the patient's lab results. 06/12/25 05:15 06/12/25 15:41 Lab Results 06/12/25 06/12/25 Range/Units 05:15 05:21 WBC 12.98 H (4.8-10.8) K/ul RBC 5.34 (4.70-6.10) M/uL Hgb 16.8 (14.0-18.0) g/dL POC Hgb 16.7 (14.0-18.0) g/dl Hct 48.1 (42.0-52.0) % POC Hct 49 (42-52) % MCV 90.1 (80.0-100.0) fL MCH 31.5 (25.0-34.0) pg MCHC 34.9 (32.0-36.0) g/dL RDW Std Deviation 41.9 (36.4-46.3) fL RDW Coeff of Sreekanth 12.7 (11.5-14.5) % Plt Count 352 (130-400) K/uL MPV 9.3 L (9.4-12.4) fL Immature Gran % (Auto) 0.2 % Neut % (Auto) 78.2 % Lymph % (Auto) 17.2 % [place] % (Auto) 3.9 % Eos % (Auto) 0.1 % Baso % (Auto) 0.4 % Neut # (Auto) 10.16 H (1.40-6.50) K/uL Lymph # (Auto) 2.23 (1.20-3.40) K/uL [place] # (Auto) 0.50 (0.11-0.59) K/uL Eos # (Auto) 0.01 (0.00-0.50) K/uL Baso # (Auto) 0.05 (0.00-0.20) K/uL Immature Gran # (Auto) 0.03 (0.01-0.20) K/uL PT 10.9 (9.0-12.0) Seconds INR 1.0 (0.9-1.1) APTT 24 (21-31) Seconds PTT Ratio 0.9 POC Sodium 141 (135-144) mmol/L Sodium 139 (136-145) mmol/L POC Potassium 3.4 (3.3-5.0) mmol/L Potassium 3.4 L (3.5-5.1) mmol/L POC Chloride 100 L (101-112) mmol/L Chloride 100 (98-107) mmol/L Carbon Dioxide 28 (21-32) mmol/L POC Total CO2 26 (24-31) mmol/L Anion Gap 11 (3-11) POC Anion Gap 19.0 (16-25) mmol/L POC BUN 27 H (7-18) mg/dl BUN 26 H (6-23) mg/dl Creatinine 1.12 (0.6-1.4) mg/dl POC Creatinine 1.2 (0.6-1.3) mg/dl Est Cr Clr Drug Dosing 74.7 ml/min eGFR 73.36 BUN/Creatinine Ratio 23.2 H (10-20) Glucose 160 H (70-99(Fasting)) mg/dl POC Glucose (other) 163 H (70-99) mg/dl Calcium 9.7 (8.6-10.3) mg/dl POC Ioniz Calcium Maddy 1.16 (1.12-1.32) mmol/l Magnesium 1.7 (1.7-2.4) mg/dl Total Bilirubin 0.5 (0.2-1.0) mg/dl AST 27 (13-39) U/L ALT 33 (7-52) U/L Alkaline Phosphatase 71 (34-104) U/L Troponin I High Sens 8.3 (0-20) pg/ml Total Protein 7.7 (6.0-8.3) gm/dl Albumin 4.3 (3.4-5.0) gm/dl Globulin 3.4 (2.5-4.0) gm/dl Albumin/Globulin Ratio 1.3 (0.9-2) TSH 0.706 (0.300-4.500) uIu/ml Imaging Data Attestation: I personally reviewed and interpreted this imaging study as follows: Radiologist's Impression: Chest X-Ray 06/12/25 05:17 EXAM: XR chest 1V portable CLINICAL HISTORY: cp TECHNIQUE: An X-ray image of the chest is obtained in AP projection. COMPARISON: 08/20/2024. FINDINGS: Pulmonary Parenchyma: No evidence of consolidation, collapse, or focal opacities. Few minute parahilar pulmonary nodules are identified. No evidence of pleural effusion or pleural thickening. Heart and Mediastinum: Heart size and shape are normal. Mild perihilar central vascular congestion. No mediastinal widening or masses. No hilar or mediastinal lymphadenopathy. Bony Thorax: Bony thorax appears intact without fractures or deformities. Soft Tissues: Soft tissues overlying the chest wall are unremarkable. IMPRESSION: 1. No acute cardiopulmonary abnormalities are identified. 2. No changes compared to the prior X-ray study dated 08/20/2024. Electronically signed by Vineet Fair 06-12-2025 06:34 AM [facility] Narrative Prior records/ancillary studies reviewed. Triage Nursing notes reviewed. Additional history obtained from nursing The patient's history was concerning for palpitations. Differential diagnosis: Etiologies such as premature contractions, electrolyte abnormality, cardiac dysrhythmia, thyroid dysfunction, pulmonary embolism, infection, gastrointestinal, as well as others were entertained. Physical examination: Benign as above. ER treatment provided: Cardizem 20 mg IV push Cardizem drip ordered IV fluids, i-STAT was ordered Admitting team would like to decide the heparin order once coags come back. This is deferred to them. CHADS2 score was 1. On reassessment the patient felt better. Diagnostic interpretation by me: An order was placed for continuous cardiac monitoring. The monitor shows a rate of 80-1 70 with a A-fib rhythm per my interpretation. The electrocardiogram was ordered for palpitaions ECG: Irregularly irregular with ST depressions in the inferior and lateral leads, aVR elevated, rate of 158. Impression A-fib with RVR with ST changes independently interpreted by myself EKG #2 was ordered for tachycardia EKG: Irregularly irregular with improved ST changes and no more elevation in aVR. Impression A-fib RVR rate of [address] changes independently interpreted myself The labs Independently Interpreted by myself revealed leukocytosis-Most likely related to recent prednisone use, stable H&H, mild hyperglycemia w/o DKA Negative troponin Euthyroid Imaging studies: Chest x-ray as above. CHADS2 Score Sex (male 0, female 1): 0 Congestive HF (1): 0 Hypertension (1) :1 Age <65 (0); 65-74 (1); >75 years (1) :0 Diabetes mellitus (1):0 Stroke/TIA/TE (2): 0 Vascular disease (prior IA, PAD, Aortic plaque) (1): 0 Score: 1 CHADS2: Risk of Ischemic Stroke; Risk of stroke/TIA/systemic embolism 0: 02.%; 0.3% 1: 0.6%; 0.9% 2: 2.2%; 2.9% 3: 3.2%; 4.6% 4: 4.8%; 6.7% 5: 7.2%; 10% 6: 9.7%; 13.6% 7: 11.2%; 15.7% 8: 10.8%; 15.2% 9: 12.2%; 17.4% Consultation: A consultation was placed with the hospitalist. The case was discussed and diagnostics were reviewed. The patient was evaluated in the ER for further treatment. This appears to be consistent with A-fib with RVR. Patient was given Cardizem IV and started on a drip. Drip was discontinued as blood pressure did drop. This improved immediately. Patient was fluids to Lopressor as needed. Medicine was consulted case discussed. He will be admitted to the medical service.. By the evaluation outlined above emergent etiologies such as electrolyte abnormality, thyroid dysfunction, pulmonary embolism, infection, as well as others were deemed relatively unlikely. The pt informed about the findings as listed above. All questions were answered and pleased with the treatment. The chart was completed utilizing [employer] Speech voice recognition software. Grammatical errors, random word insertions, pronoun errors, and incomplete sentences are an occassional consequence of this system due to software limitations, ambient noise, and hardware issues. Any formal questions or concerns about the content, text, or information contained within the body of this dictation should be directly addressed to the physician middle school assistant principal for clarification. Impression & Plan Atrial fibrillation with rapid ventricular response Discharge Plan Visit Data Chief Complaint: Cardiac Assessment Stated Complaint: AFIB ED Provider: Lisa Meyers ED Midlevel Provider: Fernanda Osborn Discharge Problem: Atrial fibrillation with rapid ventricular response Patient Disposition: Admitted As Inpatient Condition: Good Discharge Instructions Interventions: ED Discharge Assessment Last Done: 06/12/25 08:49
[2025-06-12] MEDS: SODIUM CHLORIDE 0.9% 1,000 ML IV ONE (05:55)
[2025-06-12 06:09] LABS: Hematocrit (blood only) 48.1 % (42.0-52.0); Hemoglobin 16.8 g/dL (14.0-18.0); Immature Granulocytes # (auto) 0.03 K/uL (0.01-0.20); Immature Granulocytes % (auto) 0.2 %; Mean Corpuscular Hemoglobin 31.5 pg (25.0-34.0); Mean Corpuscular Volume 90.1 fL (80.0-100.0); Platelet Count 352 K/uL (130-400); RDW Standard Deviation 41.9 fL (36.4-46.3); Red Blood Count 5.34 M/uL (4.70-6.10); White Blood Count 12.98 K/ul (4.8-10.8)
[2025-06-12 06:26] LABS: Alanine Aminotransferase 33.0 U/L (7-52); Albumin Globulin Ratio 1.3 (0.9-2); Albumin Level 4.3 gm/dl (3.4-5.0); Alkaline Phosphatase 71.0 U/L (34-104); Anion Gap 11.0 (3-11); Bilirubin,Total 0.5 mg/dl (0.2-1.0); Blood Urea Nitrogen 26.0 mg/dl (6-23); Calcium 9.7 mg/dl (8.6-10.3); Carbon Dioxide 28.0 mmol/L (21-32); Chloride 100.0 mmol/L (98-107); Creatinine Clr Calc Pharmacy 74.7 ml/min; Globulin 3.4 gm/dl (2.5-4.0); Glucose 160.0 mg/dl (70-99(Fasting)); Magnesium 1.7 mg/dl (1.7-2.4); Potassium 3.4 mmol/L (3.5-5.1); Sodium 139.0 mmol/L (136-145); Total Protein 7.7 gm/dl (6.0-8.3)
--- NOTE | 2025-06-12 06:34 | XRay Report ---
EXAM: XR chest 1V portable CLINICAL HISTORY: cp TECHNIQUE: An X-ray image of the chest is obtained in AP projection. COMPARISON: 08/20/2024. FINDINGS: Pulmonary Parenchyma: No evidence of consolidation, collapse, or focal opacities. Few minute parahilar pulmonary nodules are identified. No evidence of pleural effusion or pleural thickening. Heart and Mediastinum: Heart size and shape are normal. Mild perihilar central vascular congestion. No mediastinal widening or masses. No hilar or mediastinal lymphadenopathy. Bony Thorax: Bony thorax appears intact without fractures or deformities. Soft Tissues: Soft tissues overlying the chest wall are unremarkable. IMPRESSION: 1. No acute cardiopulmonary abnormalities are identified. 2. No changes compared to the prior X-ray study dated 08/20/2024. Electronically signed by Vineet Fair 06-12-2025 06:34 AM
[2025-06-12 06:42] LABS: Thyroid Stimulating Hormone 0.706 uIu/ml (0.300-4.500)
[2025-06-12] MEDS: POTASSIUM CHLORIDE CRTAB 20 MEQ TABCR PO STA (06:45)
[2025-06-12 06:59] LABS: INR 1.0 (0.9-1.1); Partial Thromboplastin Time 24 Seconds (21-31); Prothrombin Time 10.9 Seconds (9.0-12.0)
--- NOTE | 2025-06-12 07:12 | History & Physical Report ---
Date of Service June 12, 2025 Assessment & Plan (1) Atrial fibrillation with rapid ventricular response: (2) Hypokalemia: (3) Hypomagnesemia: (4) Asthmatic bronchitis: Plan The patient is a 64-year-old male with a past medical history including paroxysmal atrial fibrillation with RVR, hypertension, eosinophilic asthma, and hyperlipidemia. He was seen at the outpatient clinic earlier this week for bronchitis, and was placed on unknown dose of prednisone and antibiotic. He woke up at 330 this morning with palpitations and they were he was in atrial fibrillation with RVR, and presented the ED for assessment. EKG did confirm A- fib with RVR. He was started empirically on diltiazem 25 potassium mg IV push and Cardizem drip at 5 mg/h, which I asked the ED to discontinue due to him being on metoprolol succinate already. His blood pressure did drop to systolic of 85, but did improve after being off of the diltiazem drip. He reports his bronchitis is improving somewhat but still has production of greenish sputum.. Potassium was 3.4, magnesium 1.7 on initial labs. Received Klor-Con 40 mill equivalents p.o. and 1K rider 10 mill equivalents IV x 1. Was also given magnesium sulfate 1 g IV. Patient referred for evaluation for admission. Atrial fibrillation with RVR/hypokalemia/hypomagnesemia- The patient will be admitted to telemetry for serial cardiac enzymes, serial EKG's, cardiac rhythm monitoring and a 2-D echocardiogram with Dopplers. Most recent echocardiogram from 06/05/2019 showed ejection fraction 60-65% Patient typically takes metoprolol succinate 75 mg daily. The ED did give the patient Cardizem push 25 mg IV and then started Cardizem drip, which I have discontinued in favor of Lopressor 5 mg IV if needed. Suspect he will normalize with his second liter of normal saline bolus, and replacement of potassium and magnesium as noted below Patient is not on anticoagulation has not been on anticoagulation in the past Coagulation profile still pending at this time Potassium was 3.4, did receive Klor-Con 40 mill equivalents p.o. in K rider 10 m ill equivalents IV x 1. Magnesium 1.7, will receive magnesium sulfate 1 g IV. Follow serial laboratories. Asthmatic bronchitis/eosinophilic asthma- On [facility] as outpatient. When seen in the outpatient clinic earlier this week he was placed on a twice daily dose of prednisone for 5 days, and an unknown antibiotic. Since this is in addition to admission, we will leave it to daytime service as placement on oral or IV methylprednisolone. Glucose on admission slightly 160 Will check hemoglobin A1c, previous records in the outpatient setting to be reviewed send patient typically is hyperglycemic but this is secondary to his recent prednisone dosage. Hyperlipidemia- Med rec needs to be confirmed, but looks to be on atorvastatin 80 mg at bedtime Ordering a fasting lipid panel Hyperglycemia- Ordering hemoglobin A1c. glucose was 160 on admission labs Leukocytosis- WBC 12.9 on admission labs Likely function of hemoconcentration and steroids, will be following serial Med rec- Remainder of laboratories will need to be confirmed in outpatient setting labs History of Present Illness Primary Care Provider: NO PCP The patient is a 64-year-old male with a past medical history including paroxysmal atrial fibrillation with RVR, hypertension, eosinophilic asthma, and hyperlipidemia. He was seen at the outpatient clinic earlier this week for bronchitis, and was placed on unknown dose of prednisone and antibiotic. He woke up at 330 this morning with palpitations and they were he was in atrial fibrillation with RVR, and presented the ED for assessment. EKG did confirm A- fib with RVR. He was started empirically on diltiazem 25 potassium mg IV push and Cardizem drip at 5 mg/h, which I asked the ED to discontinue due to him being on metoprolol succinate already. His blood pressure did drop to systolic of 85, but did improve after being off of the diltiazem drip. He reports his b ronchitis is improving somewhat but still has production of greenish sputum.. Potassium was 3.4, magnesium 1.7 on initial labs. Received Klor-Con 40 mill equivalents p.o. and 1K rider 10 mill equivalents IV x 1. Was also given magnesium sulfate 1 g IV. Patient referred for evaluation for admission Allergies Allergy/AdvReac Type Severity Reaction Status Date / Time animal dander Allergy Unknown Verified 06/12/25 06:50 bee venom protein (honey bee) Allergy Unknown Verified 06/12/25 06:50 lisinopril Allergy Unknown Verified 06/12/25 06:50 No Known Drug Allergies Allergy Unknown Verified 06/12/25 06:50 tree and shrub pollen Allergy Unknown Verified 06/12/25 06:50 Home Medications Medication Instructions Recorded Confirmed Type atorvastatin 80 mg tablet 80 mg PO HS 06/05/19 03/04/25 History metoprolol succinate 25 mg 75 mg (3 x 25 mg) PO DAILY #90 tabs 06/06/19 03/04/25 Rx tablet,extended release 24 hr Bacillus coagulans-inulin 1 1 cap PO DAILY 05/27/20 03/04/25 History billion cell-250 mg capsule (Probiotic Formula (inulin)) epinephrine 0.3 mg/0.3 mL 0.3 mg IM UD PRN 05/27/20 03/04/25 History injection, auto-injector magnesium aspartate HCl 61 mg (615 61 mg PO DAILY 05/27/20 03/04/25 History mg) tablet,delayed release budesonide-formoterol HFA 160 2 puff inhalation Q12H 08/05/24 03/04/25 History mcg-4.5 mcg/actuation aerosol inhaler (Symbicort) bupropion HCl 150 mg 24 hr tablet, 150 mg PO QAM 08/06/24 03/04/25 History extended release chlorthalidone 25 mg tablet 25 mg PO DAILY 08/06/24 03/04/25 History cholecalciferol (vitamin D3) PO 08/06/24 03/04/25 History dupilumab 300 mg/2 mL subcutaneous 300 mg (2 mL) subcut .[id number] #4 mL 10/16/24 03/04/25 Rx pen injector (Dupixent) dupilumab 300 mg/2 mL subcutaneous 600 mg (4 mL) subcut ONCE #4 mL 10/16/24 03/04/25 Rx pen injector (Dupixent) Past Med/Surg History Problem List (Updated 06/12/25 @ 07:06 by Eliecer Rene MD) Asthmatic bronchitis Hypomagnesemia Hypokalemia Atrial fibrillation with rapid ventricular response (Acute) Elevated IgE level Obstructive lung disease Seasonal allergic rhinitis Allergic rhinitis Severe persistent asthma Sleep apnea Elevated troponin Medical History (Updated 06/12/25 @ 07:06 by Eliecer Rene MD) Episodic atrial fibrillation Family History Other No pertinent family history in first degree relatives Social History Smoking Status: Never smoker Second Hand Exposure: No; Do You Dip or Chew Tobacco: No; Hx Alcohol Use: Yes Hx Substance Use: No Preferred Language: Greek Communication Ability: Effective Stock Room Manager Required: No Beliefs That Will Affect Care: None Current Living Situation: Spouse Feels Safe at Home: Yes Assistive Devices: None Review of Systems Review of Systems: The patient denies chest pain, lower extremity swelling, fevers, chills, sweats, nausea, vomiting, diarrhea , constipation, abdominal pain, pelvic pain, blood in urine or stool, dysuria, urinary frequency or urgency, lightheadedness, dizziness, headache, memory loss, loss of consciousness, rash, abnormal bruising or bleeding, imbalance, focal or generalized weakness, numbness or tingling in arms or legs, generalized arthralgias or myalgias, back or neck pain, or night sweats. The review of systems is otherwise negative other than for that already noted above, and at least 10 systems have been reviewed. Physical Exam Physical Exam: The patient is awake, alert and oriented 3, well developed and well nourished, normocephalic and atraumatic, lying in bed and in no acute distress. HEENT--PERRL, EOMI, mucous membranes and oropharynx mildly dry. Neck--supple. No JVD. No bruits. Thyroid normal, trachea midline, no adenopathy. Heart--irregularly irregular with tachycardia. 2/6 systolic murmur., No rubs or gallops. Lungs--clear bilaterally, no respiratory distress, no accessory muscle use. Abdomen--normal bowel sounds and soft. Nontender. Nondistended, no hernias or masses, no organomegaly. Extremities--no cyanosis or clubbing. No edema. There are good distal pulses b/l. Dermatologic--normal skin turgor, normal color, no abnormal lymph nodes, no rash. Neurologic--cranial nerves II through XII grossly intact. Rheumatologic--normal range of motion. Psychiatric--normal affect. Results & Data Results & Data Vital Signs (Past 12 Hours) Vital Signs Temp Pulse Pulse Resp BP BP Pulse Ox 06/12/25 06:45 126 H 16 123/75 98 06/12/25 06:18 117 H 17 116/90 97 06/12/25 06:00 115 H 16 124/95 95 06/12/25 05:56 126 H 18 117/72 95 06/12/25 05:45 111 H 16 85/69 L 94 06/12/25 05:30 109 H 17 96/74 L 94 06/12/25 05:15 107 H 16 96/72 L 94 06/12/25 05:15 105 H 14 96/72 L 95 06/12/25 05:12 150 H 06/12/25 05:11 119 H 17 110/82 95 06/12/25 05:02 37 C 120 H 19 96 O2 Del Method 06/12/25 06:45 Room Air 06/12/25 06:18 Room Air 06/12/25 06:00 Room Air 06/12/25 05:56 Room Air 06/12/25 05:45 Room Air 06/12/25 05:30 Room Air 06/12/25 05:15 Room Air 06/12/25 05:15 Room Air 06/12/25 05:12 06/12/25 05:11 Room Air 06/12/25 05:02 Room Air Laboratory Results Laboratory Results WBC 12.98 K/ul (4.8-10.8) H 06/12/25 05:15 RBC 5.34 M/uL (4.70-6.10) 06/12/25 05:15 Hgb 16.8 g/dL (14.0-18.0) 06/12/25 05:15 POC Hgb 16.7 g/dl (14.0-18.0) 06/12/25 05:21 Hct 48.1 % (42.0-52.0) 06/12/25 05:15 POC Hct 49 % (42-52) 06/12/25 05:21 MCV 90.1 fL (80.0-100.0) 06/12/25 05:15 MCH 31.5 pg (25.0-34.0) 06/12/25 05:15 MCHC 34.9 g/dL (32.0-36.0) 06/12/25 05:15 RDW Std Deviation 41.9 fL (36.4-46.3) 06/12/25 05:15 RDW Coeff of Sreekanth 12.7 % (11.5-14.5) 06/12/25 05:15 Plt Count 352 K/uL (130-400) 06/12/25 05:15 MPV 9.3 fL (9.4-12.4) L 06/12/25 05:15 Immature Gran % (Auto) 0.2 % 06/12/25 05:15 Neut % (Auto) 78.2 % 06/12/25 05:15 Lymph % (Auto) 17.2 % 06/12/25 05:15 Claiborne % (Auto) 3.9 % 06/12/25 05:15 Eos % (Auto) 0.1 % 06/12/25 05:15 Baso % (Auto) 0.4 % 06/12/25 05:15 Neut # (Auto) 10.16 K/uL (1.40-6.50) H 06/12/25 05:15 Lymph # (Auto) 2.23 K/uL (1.20-3.40) 06/12/25 05:15 Claiborne # (Auto) 0.50 K/uL (0.11-0.59) 06/12/25 05:15 Eos # (Auto) 0.01 K/uL (0.00-0.50) 06/12/25 05:15 Baso # (Auto) 0.05 K/uL (0.00-0.20) 06/12/25 05:15 Immature Gran # (Auto) 0.03 K/uL (0.01-0.20) 06/12/25 05:15 PT 10.9 Seconds (9.0-12.0) 06/12/25 05:15 INR 1.0 (0.9-1.1) 06/12/25 05:15 APTT 24 Seconds (21-31) 06/12/25 05:15 PTT Ratio 0.9 06/12/25 05:15 POC Sodium 141 mmol/L (135-144) 06/12/25 05:21 Sodium 139 mmol/L (136-145) 06/12/25 05:15 POC Potassium 3.4 mmol/L (3.3-5.0) 06/12/25 05:21 Potassium 3.4 mmol/L (3.5-5.1) L 06/12/25 05:15 POC Chloride 100 mmol/L (101-112) L 06/12/25 05:21 Chloride 100 mmol/L (98-107) 06/12/25 05:15 Carbon Dioxide 28 mmol/L (21-32) 06/12/25 05:15 POC Total CO2 26 mmol/L (24-31) 06/12/25 05:21 Anion Gap 11 (3-11) 06/12/25 05:15 POC Anion Gap 19.0 mmol/L (16-25) 06/12/25 05:21 POC BUN 27 mg/dl (7-18) H 06/12/25 05:21 BUN 26 mg/dl (6-23) H 06/12/25 05:15 Creatinine 1.12 mg/dl (0.6-1.4) 06/12/25 05:15 POC Creatinine 1.2 mg/dl (0.6-1.3) 06/12/25 05:21 Est Cr Clr Drug Dosing 74.7 ml/min 06/12/25 05:15 eGFR 73.36 06/12/25 05:15 BUN/Creatinine Ratio 23.2 (10-20) H 06/12/25 05:15 Glucose 160 mg/dl (70-99(Fasting)) H 06/12/25 05:15 POC Glucose (other) 163 mg/dl (70-99) H 06/12/25 05:21 Calcium 9.7 mg/dl (8.6-10.3) 06/12/25 05:15 POC Ioniz Calcium Maddy 1.16 mmol/l (1.12-1.32) 06/12/25 05:21 Magnesium 1.7 mg/dl (1.7-2.4) 06/12/25 05:15 Total Bilirubin 0.5 mg/dl (0.2-1.0) 06/12/25 05:15 AST 27 U/L (13-39) 06/12/25 05:15 ALT 33 U/L (7-52) 06/12/25 05:15 Alkaline Phosphatase 71 U/L (34-104) 06/12/25 05:15 Troponin I High Sens 8.3 pg/ml (0-20) 06/12/25 05:15 Total Protein 7.7 gm/dl (6.0-8.3) 06/12/25 05:15 Albumin 4.3 gm/dl (3.4-5.0) 06/12/25 05:15 Globulin 3.4 gm/dl (2.5-4.0) 06/12/25 05:15 Albumin/Globulin Ratio 1.3 (0.9-2) 06/12/25 05:15 TSH 0.706 uIu/ml (0.300-4.500) 06/12/25 05:15 Impressions Chest X-Ray 06/12/25 05:17 EXAM: XR chest 1V portable CLINICAL HISTORY: cp TECHNIQUE: An X-ray image of the chest is obtained in AP projection. COMPARISON: 08/20/2024. FINDINGS: Pulmonary Parenchyma: No evidence of consolidation, collapse, or focal opacities. Few minute parahilar pulmonary nodules are identified. No evidence of pleural effusion or pleural thickening. Heart and Mediastinum: Heart size and shape are normal. Mild perihilar central vascular congestion. No mediastinal widening or masses. No hilar or mediastinal lymphadenopathy. Bony Thorax: Bony thorax appears intact without fractures or deformities. Soft Tissues: Soft tissues overlying the chest wall are unremarkable. IMPRESSION: 1. No acute cardiopulmonary abnormalities are identified. 2. No changes compared to the prior X-ray study dated 08/20/2024. Electronically signed by Vineet Fair 06-12-2025 06:34 AM Code Status & VTE Plan Code Status Full code VTE Prophylaxis Plan VTE Prophylaxis will be ordered: Yes PG Care Time/CCT Total # of Minutes Spent Total Time Spent with Patient: Total time spent is greater than 50% in coordination of care (as documented) at patient's floor/unit and/or counseling patient: Coding Level of Care Code 60630 INT INP/OBS CARE 3/75MIN Diagnoses Atrial fibrillation with rapid ventricular response I48.91 Hypokalemia E87.6 Hypomagnesemia E83.42 Asthmatic bronchitis J45.909
--- NOTE | 2025-06-12 07:20 | Emergency Department Note ---
ED Visit Note Patient case signed out to me at shift change, 0623 06/12/2025. Patient presents A-fib RVR. Patient reevaluated and resting comfortably. He has no pain at this time. The coagulation studies returned normal. Discussion was had with the patient regarding anticoagulation. When I discussed anticoagulation with the patient, he notes that someone was just in the room and reviewed plan with anticoagulation. I then reached out to the medicine service and spoke with Dr. Martinez. He will further review, and notes that he will also manage the anti coagulation/place the orders. Please refer to further documentation regarding his stay. .
[2025-06-12] MEDS: POTASSIUM CHLORIDE / WTR 10 MEQ/100 ML PLCT IV STA (07:34)
[2025-06-12] MEDS: MAGNESIUM SULFATE / D5W 1 GM/100 ML BAG IV STA (08:50)
[2025-06-12] MEDS ORDERED: Heparin IV Adult Wt-Based Standard *NO* INITIAL Bolus Protocol IV STA (08:57)
[2025-06-12] MEDS ORDERED: ACETAMINOPHEN 325 MG TAB PO PRN (08:57)
[2025-06-12] MEDS: HEPARIN 25000 UNIT/500 ML D5W 25,000 UNITS/500 ML BAG IV SCH (09:19)
[2025-06-12] MEDS: ADVANCED PROBIOTIC 625 MG CAPSULE PO SCH (10:03)
[2025-06-12] MEDS: FLUTICASONE/VILANTEROL 200/25MCG 14 PUFFS/INHALER INH SCH (10:03)
[2025-06-12] MEDS: METOPROLOL SUCC 25MG EXT REL TAB PO SCH (10:04)
[2025-06-12 10:05] LABS: Cholesterol 170.0 mg/dl (0-200); HDL Cholesterol 62.0 mg/dl; Triglycerides 82.0 mg/dl (0-150)
[2025-06-12 10:37] LABS: Hemoglobin A1C 5.6 % (4.5-5.6)
[2025-06-12] MEDS: METOPROLOL TARTRATE 1 MG/ML VIAL IV PRN (11:13)
--- NOTE | 2025-06-12 13:50 | Hospitalist Progress Note ---
Date of Service June 12, 2025 Assessment & Plan (1) Atrial fibrillation with rapid ventricular response: (2) Hypokalemia: (3) Hypomagnesemia: (4) Asthmatic bronchitis: Plan The patient is a 64-year-old male with a past medical history including paroxysmal atrial fibrillation with RVR, hypertension, eosinophilic asthma, and hyperlipidemia. He was seen at the outpatient clinic earlier this week for bronchitis, and was placed on unknown dose of prednisone and antibiotic. He woke up at 330 this morning with palpitations and they were he was in atrial fibrillation with RVR, and presented the ED for assessment. EKG did confirm A- fib with RVR. He was started empirically on diltiazem 25 potassium mg IV push and Cardizem drip at 5 mg/h, which I asked the ED to discontinue due to him being on metoprolol succinate already. His blood pressure did drop to systolic of 85, but did improve after being off of the diltiazem drip. He reports his bronchitis is improving somewhat but still has production of greenish sputum.. Potassium was 3.4, magnesium 1.7 on initial labs. Received Klor-Con 40 mill equivalents p.o. and 1K rider 10 mill equivalents IV x 1. Was also given magnesium sulfate 1 g IV. Patient referred for evaluation for admission. 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 fib RVR, even after second liter of NS bolus and K/Mg replacement, however patient asymptomatic. Tachycardic, otherwise hemodynamically stable. - echocardiogram from 06/05/2019 showed ejection fraction 60-65% - in ED, gave cardizem push 25 mg IV and started on cardizem drip, which was d/c. Lopressor 5mg IV if needed. - continue home metoprolol succinate 75 mg daily - previous [id number] score = 1 , therefore not on anticoagulation. Score today remains 1. Will start heparin drip for anticoagulation. Coagulation panel wnl. - Potassium was 3.4, did receive Klor-Con 40 mill equivalents p.o. in K rider 10 mill equivalents IV x 1. - Magnesium 1.7, will receive magnesium sulfate 1 g IV. - BMP qAM Asthmatic bronchitis/eosinophilic asthma - On [facility] as outpatient. - was seen in the outpatient clinic on 06/09/25 this week he was placed pred nisone 40mg po for 5 days and augmentin 875/125 bid po for 7 days. - we will plan to hold prednisone dose at this time, as there could be likely be causing some of his symptoms above. - continue augmentin 875/125 po bid to complete his abx course - CBC qAM Hyperlipidemia - continue atorvastatin 80mg daily - fasting lipid panel: total 170, tri's 82, LDL 92, HDL 62 Hyperglycemia- - A1c 5.6% - glucose 160 on admission labs - continue monitoring BGs Leukocytosis WBC 12.9 on admission labs Likely function of hemoconcentration and steroids, will be following serial DVT: heparin drip Dispo: med/tele Admission and Anticipated Discharge Date Admission Date: June 12, 2025 Supervising Physician Co-Signing Physician Notes I also saw the patient confirmed trujillo portions of the clinical and a physical examination. I agree with the impression and plan as noted in the resident documentation above. Patient was admitted earlier this morning by the overnight team. Briefly, 64-year-old male with history of atrial fibrillation - this would be his third episode. Sounds as if he had an upper respiratory infection/bronchitis, treated with prednisone - suspect combination of physiologic stress from the illness plus adrenergic response to the steroids put him into a atrial fibrillation with rapid ventricular response. Since his resting heart rate, when in sinus, it is in the high 50s to mid 60s, he is fully cognizant of when he flips into atrial fibrillation. Given [id number] score of 1, he is not systemically anticoagulated. It does sound as if he was anticoagulated short-term with the previous episodes but this was discontinued shortly after he maintained sinus rhythm. In the emergency department, he was given a Cardizem bolus. Upon admission this was discontinued in favor of home plus as needed doses of Lopressor. In seeing his midmorning, he is feeling well. He is still an atrial fibrillation with ventricular rates between 110-120; on a couple occasions while talking to him and watching his telemetry, looks as if he was trying to convert back to sinus. Hoping with correction of electrolyte disturbances and holding the prednisone he will self convert. We did start a heparin drip for the time being. He follows with [facility] cardiology; consult has been placed. Subjective Patient seen and examined at bedside. Alert, awake, no acute distress. No concerns at this time. Remains tachycardiac, otherwise hemodynamically stable. Cardiac monitoring showing patient still a. fib RVR. Denies chest pain, SOB, headache/dizziness. Review of Systems Review of Systems: as per hpi Physical Exam Constitutional: well developed; no acute distress Respiratory: normal respiratory effort, lungs clear to auscultation normal respiratory effort; no respiratory distress, no labored breathing and does not use accessory muscles Cardiovascular: Rate/Rhythm: + tachycardic and + irregularly irregular no peripheral edema Gastrointestinal (Abdomen): Inspection/Auscultation: abdomen normal to inspection Musculoskeletal: Extremities: extremities normal to inspection Skin: no rashes, warm and dry Neurologic: no focal neurologic deficit Psychiatric: A+Ox3, euthymic affect Results & Data Results & Data Vital Signs (Past 12 Hours) Vital Signs Temp Pulse Pulse Resp BP BP Pulse Ox 06/12/25 12:00 111 H 18 107/87 96 06/12/25 11:32 118 H 135/94 06/12/25 11:13 140 H 127/66 06/12/25 09:32 138 H 116/79 06/12/25 09:00 124 H 18 99/59 L 97 06/12/25 09:00 06/12/25 07:00 121 H 16 139/80 98 06/12/25 06:45 126 H 16 123/75 98 06/12/25 06:18 117 H 17 116/90 97 06/12/25 06:00 115 H 16 124/95 95 06/12/25 05:56 126 H 18 117/72 95 06/12/25 05:45 111 H 16 85/69 L 94 06/12/25 05:30 109 H 17 96/74 L 94 06/12/25 05:15 107 H 16 96/72 L 94 06/12/25 05:15 105 H 14 96/72 L 95 06/12/25 05:12 150 H 06/12/25 05:11 119 H 17 110/82 95 06/12/25 05:02 37 C 120 H 19 96 Pulse Ox O2 Del Method O2 Del Method 06/12/25 12:00 Room Air 06/12/25 11:32 06/12/25 11:13 06/12/25 09:32 06/12/25 09:00 Room Air 06/12/25 09:00 97 Room Air 06/12/25 07:00 Room Air 06/12/25 06:45 Room Air 06/12/25 06:18 Room Air 06/12/25 06:00 Room Air 06/12/25 05:56 Room Air 06/12/25 05:45 Room Air 06/12/25 05:30 Room Air 06/12/25 05:15 Room Air 06/12/25 05:15 Room Air 06/12/25 05:12 06/12/25 05:11 Room Air 06/12/25 05:02 Room Air Resident Activity Tracking Resident Involvement: Resident Care Provided Care Provided: Adult Hospital Medicine
--- NOTE | 2025-06-12 15:53 | XCELERA ---
[id number] [id number]
[2025-06-12 16:18] LABS: ANTI-Xa, UFH(UnfractionatedHep 0.33 IU/ml (0.3-0.7)
--- NOTE | 2025-06-12 17:37 | Cardiology Consultation ---
Date of Consultation June 12, 2025 Assessment & Plan (1) Atrial fibrillation with rapid ventricular response: (2) Chest pain: Plan Mr. English's chest pain coupled with significant ST depressions is concerning for underlying coronary disease. His initial troponin was normal. I will repeat a troponin now. His echo fortunately did not show any wall motion abnormalities or reduced EF. His heart rate is not well controlled. His bps are soft and I don't think he has room to uptitrate his beta chinedu. He did have mildly reduced potassium on admission and has had 50 mEq of replacement this morning. I will recheck his potassium level and if normal, add digoxin 250 mcg IV x1 and then transition to po digoxin. If he does not convert spontaneously into NSR in the next few days, we can consider PINKY/cardioversion. He was not anticoagulated prior to his arrival at the hospital. He can remain on heparin for now. He can be transitioned to NOAC at discharge. His case was discussed with Dr. Reis who is in agreement. History of Present Illness Attending Physician: Parag Vega DO History of Present Illness Mr. English was awoken around 3 am in afib. He felt chest pain radiating to his jaw, palpitations and diaphoresis. He had started treatment for bronchitis on Sunday with abx and prednisone. He has not had any episodes of afib since 2018 when he was last seen by our clinic. In the ED he was found to be in afib with RVR. His EKG demonstrated ST depressions in the inferolateral leads. His troponin was normal. At this time he is no longer having any chest or jaw pain. No further dyspnea or diaphoresis. He feels comfortable and is not particularly feeling palpitations. His heart rate remains in the 120s on the monitor. Allergies Allergy/AdvReac Type Severity Reaction Status Date / Time animal dander Allergy Unknown Verified 06/12/25 06:50 bee venom protein (honey bee) Allergy Unknown Verified 06/12/25 06:50 lisinopril Allergy Unknown Verified 06/12/25 06:50 No Known Drug Allergies Allergy Unknown Verified 06/12/25 06:50 tree and shrub pollen Allergy Unknown Verified 06/12/25 06:50 Home Medications Medication Instructions Recorded Confirmed Type atorvastatin 80 mg tablet 80 mg PO HS 06/05/19 06/12/25 History metoprolol succinate 25 mg 75 mg (3 x 25 mg) PO DAILY #90 tabs 06/06/19 06/12/25 Rx tablet,extended release 24 hr Bacillus coagulans-inulin 1 1 cap PO DAILY 05/27/20 06/12/25 History billion cell-250 mg capsule (Probiotic Formula (inulin)) epinephrine 0.3 mg/0.3 mL 0.3 mg IM UD PRN Anaphylaxis 05/27/20 06/12/25 History injection, auto-injector magnesium aspartate HCl 61 mg (615 61 mg PO DAILY 05/27/20 06/12/25 History mg) tablet,delayed release budesonide-formoterol HFA 160 2 puff inhalation Q12H 08/05/24 06/12/25 History mcg-4.5 mcg/actuation aerosol inhaler (Symbicort) bupropion HCl 150 mg 24 hr tablet, 150 mg PO QAM 08/06/24 06/12/25 History extended release chlorthalidone 25 mg tablet 25 mg PO DAILY 08/06/24 06/12/25 History cholecalciferol (vitamin D3) 25 25 mcg PO DAILY 06/12/25 06/12/25 History mcg (1,000 unit) capsule (Vitamin D3) ciclopirox 0.77 % topical cream 1 applic topical BID 06/12/25 06/12/25 History ciclopirox 8 % topical solution 1 applic topical DAILY 06/12/25 06/12/25 History dupilumab 300 mg/2 mL subcutaneous 300 mg subcut DIRECTED 06/12/25 06/12/25 History pen injector (Dupixent) montelukast 10 mg tablet 10 mg PO DAILY PRN SOB 06/12/25 06/12/25 History Patient History Medical History (Updated 06/12/25 @ 17:30 by FORTINO Serrano) Episodic atrial fibrillation Family History Other No pertinent family history in first degree relatives Social History Smoking Status: Never smoker Second Hand Exposure: No; Do You Dip or Chew Tobacco: No; Hx Alcohol Use: Yes Hx Substance Use: No Preferred Language: Greek Communication Ability: Effective Assembly Adjuster Required: No Beliefs That Will Affect Care: None Current Living Situation: Spouse Feels Safe at Home: Yes Assistive Devices: None Review of Systems Review of Systems: All systems reviewed & are unremarkable except as noted in HPI & below Physical Exam Constitutional: WD/WN, vitals as above Respiratory: normal respiratory effort, lungs clear to auscultation Cardiovascular: Rate/Rhythm: + abnormal rate and + abnormal rhythm Heart Sounds: no murmur Extremities: no edema Skin: no rashes, warm and dry Neurologic: moves all extremities and awake Psychiatric: A+Ox3, euthymic affect Results & Data Vital Signs (Past 12 Hours) Vital Signs Temp Pulse Pulse Resp BP BP Pulse Ox 06/12/25 15:21 36.7 C 92 H 14 103/67 96 06/12/25 12:00 111 H 18 107/87 96 06/12/25 11:32 118 H 135/94 06/12/25 11:13 140 H 127/66 06/12/25 09:32 138 H 116/79 06/12/25 09:00 124 H 18 99/59 L 97 06/12/25 09:00 06/12/25 07:00 121 H 16 139/80 98 06/12/25 06:45 126 H 16 123/75 98 06/12/25 06:18 117 H 17 116/90 97 06/12/25 06:00 115 H 16 124/95 95 06/12/25 05:56 126 H 18 117/72 95 06/12/25 05:45 111 H 16 85/69 L 94 06/12/25 05:30 109 H 17 96/74 L 94 06/12/25 05:15 107 H 16 96/72 L 94 06/12/25 05:15 105 H 14 96/72 L 95 Pulse Ox O2 Del Method O2 Del Method 06/12/25 15:21 Room Air 06/12/25 12:00 Room Air 06/12/25 11:32 06/12/25 11:13 06/12/25 09:32 06/12/25 09:00 Room Air 06/12/25 09:00 97 Room Air 06/12/25 07:00 Room Air 06/12/25 06:45 Room Air 06/12/25 06:18 Room Air 06/12/25 06:00 Room Air 06/12/25 05:56 Room Air 06/12/25 05:45 Room Air 06/12/25 05:30 Room Air 06/12/25 05:15 Room Air 06/12/25 05:15 Room Air
[2025-06-12 18:12] LABS: Potassium 3.7 mmol/L (3.5-5.1)
[2025-06-12] MEDS: DIGOXIN 250 MCG in SYRINGE 9 ML IV STA (19:01)
[2025-06-12] MEDS: ASPIRIN 81 MG ECTAB PO SCH (19:05)
[2025-06-12] MEDS: ROSUVASTATIN CALCIUM 20 MG TAB PO SCH (21:10)
[2025-06-13 05:48] LABS: Hematocrit (blood only) 45.8 % (42.0-52.0); Hemoglobin 16.3 g/dL (14.0-18.0); Immature Granulocytes # (auto) 0.03 K/uL (0.01-0.20); Immature Granulocytes % (auto) 0.3 %; Mean Corpuscular Hemoglobin 31.8 pg (25.0-34.0); Mean Corpuscular Volume 89.3 fL (80.0-100.0); Platelet Count 262 K/uL (130-400); RDW Standard Deviation 41.4 fL (36.4-46.3); Red Blood Count 5.13 M/uL (4.70-6.10); White Blood Count 10.18 K/ul (4.8-10.8)
[2025-06-13 06:06] LABS: Alanine Aminotransferase 29.0 U/L (7-52); Albumin Globulin Ratio 1.3 (0.9-2); Albumin Level 3.5 gm/dl (3.4-5.0); Alkaline Phosphatase 64.0 U/L (34-104); Anion Gap 6.0 (3-11); Bilirubin,Total 0.6 mg/dl (0.2-1.0); Blood Urea Nitrogen 17.0 mg/dl (6-23); Calcium 8.9 mg/dl (8.6-10.3); Carbon Dioxide 30.0 mmol/L (21-32); Chloride 103.0 mmol/L (98-107); Creatinine Clr Calc Pharmacy 81.4 ml/min; Globulin 2.8 gm/dl (2.5-4.0); Glucose 108.0 mg/dl (70-99(Fasting)); Magnesium 1.7 mg/dl (1.7-2.4); Potassium 3.6 mmol/L (3.5-5.1); Sodium 139.0 mmol/L (136-145); Total Protein 6.3 gm/dl (6.0-8.3)
[2025-06-13 06:24] LABS: ANTI-Xa, UFH(UnfractionatedHep 0.44 IU/ml (0.3-0.7)
[2025-06-13 06:27] LABS: INR 1.1 (0.9-1.1); Partial Thromboplastin Time 48 Seconds (21-31); Prothrombin Time 11.3 Seconds (9.0-12.0)
--- NOTE | 2025-06-13 08:07 | Electrocardiogram Report ---
Test Reason : Blood Pressure : */* mmHG Vent. Rate : 158 BPM Atrial Rate : * BPM P-R Int : * ms QRS Dur : 96 ms QT Int : 296 ms P-R-T Axes : * 12 241 degrees QTcB Int : 480 ms Atrial fibrillation with rapid ventricular response Possible Anterior infarct , age undetermined Marked ST abnormality, possible inferolateral subendocardial injury Abnormal ECG When compared with ECG of 06-Jun-2019 10:12, Prior tracing was normal Confirmed by Jake Awan ([id number]) on 06/13/2025 8:07:26 AM Referred By: REFERRED SELF Confirmed By: Jake Awan
--- NOTE | 2025-06-13 08:08 | Electrocardiogram Report ---
Test Reason : Blood Pressure : */* mmHG Vent. Rate : 117 BPM Atrial Rate : * BPM P-R Int : * ms QRS Dur : 96 ms QT Int : 344 ms P-R-T Axes : * 31 47 degrees QTcB Int : 479 ms Atrial fibrillation with rapid ventricular response Cannot rule out Anterior infarct (cited on or before 12-Jun-2025) Abnormal ECG When compared with ECG of 12-Jun-2025 05:08, (unconfirmed) No significant change HR has decreased Confirmed by Jake Awan ([id number]) on 06/13/2025 8:07:58 AM Referred By: REFERRED SELF Confirmed By: Jake Awan
[2025-06-13] MEDS: AMOXICILLIN/CLAVULANATE 875 MG TAB PO SCH (09:10)
--- NOTE | 2025-06-13 12:31 | Electrocardiogram Report ---
Test Reason : Blood Pressure : */* mmHG Vent. Rate : 122 BPM Atrial Rate : * BPM P-R Int : * ms QRS Dur : 92 ms QT Int : 324 ms P-R-T Axes : * 1 -35 degrees QTcB Int : 461 ms Atrial fibrillation with rapid ventricular response Nonspecific T wave abnormality Abnormal ECG When compared with ECG of 12-Jun-2025 05:15, (unconfirmed) Nonspecific T wave abnormality now evident in Inferior leads Confirmed by Benjamín Alvarez ([id number]) on 06/13/2025 12:31:11 PM Referred By: REFERRED SELF Confirmed By: Benjamín Alvarez
--- NOTE | 2025-06-13 16:01 | Hospitalist Progress Note ---
Date of Service June 13, 2025 Assessment & Plan (1) Atrial fibrillation with rapid ventricular response: (2) Hypokalemia: (3) Hypomagnesemia: Plan The patient is a 64-year-old male with a past medical history including paroxysmal atrial fibrillation with RVR, hypertension, eosinophilic asthma, and hyperlipidemia. He was seen at the outpatient clinic earlier this week for bronchitis, and was placed on unknown dose of prednisone and antibiotic. He woke up at 330 this morning with palpitations and they were he was in atrial fibrillation with RVR, and presented the ED for assessment. EKG did confirm A- fib with RVR. He was started empirically on diltiazem 25 potassium mg IV push and Cardizem drip at 5 mg/h, which I asked the ED to discontinue due to him being on metoprolol succinate already. His blood pressure did drop to systolic of 85, but did improve after being off of the diltiazem drip. He reports his bronchitis is improving somewhat but still has production of greenish sputum.. Potassium was 3.4, magnesium 1.7 on initial labs. Received Klor-Con 40 mill equivalents p.o. and 1K rider 10 mill equivalents IV x 1. Was also given magnesium sulfate 1 g IV. Patient referred for evaluation for admission. 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 Tachycardic, otherwise hemodynamically stable. - echocardiogram from 06/05/2019 showed ejection fraction 60-65% - in ED, gave cardizem push 25 mg IV and started on cardizem drip, which was d/c. Lopressor 5mg IV if needed. - cardiology consulted and appreciate recommendations - trops were elevated last night 86.7, downtrend this morning 57.4 - given digoxin 250mcg push and continued on digoxin 0.125mg po - metoprolol succinate 75 mg daily - continue rosuvastatin 20mg po hs - previous [id number] score = 1 , therefore was not put on anticoagulation previously. Score remains 1. Currently on heparin drips. aPTT 48. Rest of coag panel wnl. - electrolytes & Mg wnl - BMP qAM community acquired pneumonia - patient was being treated for this in the outpatient setting prior to admission with prednisone 40mg po for 5 days and augmentin 875/125 bid po for 7 days - hx of severe persistent asthma, on Symbicort, Dupixent, and montelukast at [facility]. - at this time, plan to hold outpatient steroid regimen, however will continue abx with augmentin 875/125 po bid for a complete 7 day course - CXR negative for acute cardiopulmonary abnormalities - CBC qAM Hyperlipidemia - continue rosuvastatin 20mg daily - fasting lipid panel: total 170, tri's 82, LDL 92, HDL 62. - LDL goal <70 - high intensity statin as above Hyperglycemia - A1c 5.6% - glucose 160 on admission labs - continue monitoring BGs Leukocytosis - resolved - WBC 12.9 on admission labs, likely result of steroid use outpatient and pneumonia - today, WBC 10.18. l DVT: heparin drip Dispo: med/tele Admission and Anticipated Discharge Date Admission Date: June 12, 2025 Supervising Physician Co-Signing Physician Notes Attending attestation Pt seen and examined in concert with Dr. Taylor. In agreement with the documented findings as noted in the resident documentation with any exceptions or additions as noted here. Resting comfortably in bed with mild fatigue/lightheadedness/palpitations with mild activity. VS as noted. On examination, S1/S2 nl IRR/IRR tachycardic. CTAB. Abd NT/ND BS+ve. Atrial fibrillation w/ RVR - cardiology consult - on heparin, digoxin and metoprolol 75mg without return to sinus or rate control. Will continue present plan and monitor, consider lopressor vs. cardioversion based on further change in clinical status pending re-evaluation by cardiology and/or cardioversion. Community acquired pneumonia - complete couse of augmentin PO Else see resident documentation as noted. Subjective Patient seen and examined at bedside. Alert, awake, no acute distress. No concerns at this time. Remains tachycardiac, otherwise hemodynamically stable. Cardiac monitoring showing patient still a. fib RVR. Denies chest pain, SOB, headache/dizziness. Review of Systems Review of Systems: as per hpi Physical Exam Constitutional: well developed; no acute distress Respiratory: normal respiratory effort, lungs clear to auscultation normal respiratory effort; no respiratory distress, no labored breathing and does not use accessory muscles Cardiovascular: Rate/Rhythm: + tachycardic and + irregularly irregular Gastrointestinal (Abdomen): Inspection/Auscultation: abdomen normal to inspection Musculoskeletal: Extremities: extremities normal to inspection Skin: no rashes, warm and dry Psychiatric: A+Ox3, euthymic affect Results & Data Results & Data Vital Signs (Past 12 Hours) Vital Signs Temp Pulse Pulse Resp BP BP Pulse Ox 06/13/25 14:59 36.5 C 122 H 16 125/75 97 06/13/25 12:18 118 H 104/67 06/13/25 11:50 37 C 104 H 20 119/84 95 06/13/25 07:24 36.7 C 85 20 115/80 95 O2 Del Method 06/13/25 14:59 Room Air 06/13/25 12:18 06/13/25 11:50 Room Air 06/13/25 07:24 Room Air
[2025-06-13] MEDS: DIGOXIN 0.125 MG TAB PO SCH (16:25)
[2025-06-14 05:43] LABS: Hematocrit (blood only) 49.4 % (42.0-52.0); Hemoglobin 17.4 g/dL (14.0-18.0); Immature Granulocytes # (auto) 0.04 K/uL (0.01-0.20); Immature Granulocytes % (auto) 0.4 %; Mean Corpuscular Hemoglobin 31.4 pg (25.0-34.0); Mean Corpuscular Volume 89.2 fL (80.0-100.0); Platelet Count 270 K/uL (130-400); RDW Standard Deviation 41.2 fL (36.4-46.3); Red Blood Count 5.54 M/uL (4.70-6.10); White Blood Count 9.99 K/ul (4.8-10.8)
[2025-06-14 05:58] LABS: Alanine Aminotransferase 36.0 U/L (7-52); Albumin Globulin Ratio 1.0 (0.9-2); Albumin Level 3.2 gm/dl (3.4-5.0); Alkaline Phosphatase 76.0 U/L (34-104); Anion Gap 5.0 (3-11); Bilirubin,Total 0.4 mg/dl (0.2-1.0); Blood Urea Nitrogen 18.0 mg/dl (6-23); Calcium 9.1 mg/dl (8.6-10.3); Carbon Dioxide 29.0 mmol/L (21-32); Chloride 103.0 mmol/L (98-107); Creatinine Clr Calc Pharmacy 71.8 ml/min; Globulin 3.2 gm/dl (2.5-4.0); Glucose 120.0 mg/dl (70-99(Fasting)); Magnesium 1.7 mg/dl (1.7-2.4); Potassium 3.9 mmol/L (3.5-5.1); Sodium 137.0 mmol/L (136-145); Total Protein 6.4 gm/dl (6.0-8.3)
[2025-06-14 06:07] LABS: ANTI-Xa, UFH(UnfractionatedHep 0.42 IU/ml (0.3-0.7)
[2025-06-14 06:12] LABS: INR 1.1 (0.9-1.1); Partial Thromboplastin Time 47 Seconds (21-31); Prothrombin Time 11.2 Seconds (9.0-12.0)
[2025-06-14 15:13] VITALS: BP 121/82; RESP 20; TEMP 97.2; O2SAT 98
--- NOTE | 2025-06-14 16:41 | Discharge Summary ---
Date of Service June 14, 2025 Admission HPI Per Admitting Provider The patient is a 64-year-old male with a past medical history including paroxysmal atrial fibrillation with RVR, hypertension, eosinophilic asthma, and hyperlipidemia. He was seen at the outpatient clinic earlier this week for bronchitis, and was placed on unknown dose of prednisone and antibiotic. He woke up at 330 this morning with palpitations and they were he was in atrial fibrillation with RVR, and presented the ED for assessment. EKG did confirm A- fib with RVR. He was started empirically on diltiazem 25 potassium mg IV push and Cardizem drip at 5 mg/h, which I asked the ED to discontinue due to him being on metoprolol succinate already. His blood pressure did drop to systolic of 85, but did improve after being off of the diltiazem drip. He reports his bronchitis is improving somewhat but still has production of greenish sputum.. Potassium was 3.4, magnesium 1.7 on initial labs. Received Klor-Con 40 mill equivalents p.o. and 1K rider 10 mill equivalents IV x 1. Was also given magnesium sulfate 1 g IV. Patient referred for evaluation for admission Admission Exam Per Admitting Provider The patient is awake, alert and oriented 3, well developed and well nourished, normocephalic and atraumatic, lying in bed and in no acute distress. HEENT--PERRL, EOMI, mucous membranes and oropharynx mildly dry. Neck--supple. No JVD. No bruits. Thyroid normal, trachea midline, no adenopathy. Heart--irregularly irregular with tachycardia. 2/6 systolic murmur., No rubs or gallops. Lungs--clear bilaterally, no respiratory distress, no accessory muscle use. Abdomen--normal bowel sounds and soft. Nontender. Nondistended, no hernias or masses, no organomegaly. Extremities--no cyanosis or clubbing. No edema. There are good distal pulses b/l. Dermatologic--normal skin turgor, normal color, no abnormal lymph nodes, no rash. Neurologic--cranial nerves II through XII grossly intact. Rheumatologic--normal range of motion. Psychiatric--normal affect. Principal Diagnosis atrial fibrillation with RVR community acquired pneumonia Discharge Exam Constitutional well developed; no acute distress Respiratory normal respiratory effort, lungs clear to auscultation normal respiratory effort; no respiratory distress, no labored breathing and does not use accessory muscles Cardiovascular Rate/Rhythm: regular rate and regular rhythm Gastrointestinal (Abdomen) Inspection/Auscultation: abdomen normal to inspection Musculoskeletal Extremities: extremities normal to inspection Skin no rashes, warm and dry Psychiatric A+Ox3, euthymic affect Discharge Data Allergies Allergy/AdvReac Type Severity Reaction Status Date / Time animal dander Allergy Unknown Verified 06/12/25 06:50 bee venom protein (honey bee) Allergy Unknown Verified 06/12/25 06:50 lisinopril Allergy Unknown Verified 06/12/25 06:50 No Known Drug Allergies Allergy Unknown Verified 06/12/25 06:50 tree and shrub pollen Allergy Unknown Verified 06/12/25 06:50 Consultations 06/12/25 06:17 ED Decision to Admit Stat 06/12/25 08:57 Consult Cardiology Routine Hospital Course (1) Atrial fibrillation with rapid ventricular response: (2) Hypokalemia: (3) Hypomagnesemia: (4) Asthmatic bronchitis: Plan The patient is a 64-year-old male with a past medical history including paroxysmal atrial fibrillation with RVR, hypertension, eosinophilic asthma, and hyperlipidemia. He was seen at the outpatient clinic earlier this week for bronchitis, and was placed on unknown dose of prednisone and antibiotic. He woke up at 330 this morning with palpitations and they were he was in atrial fibrillation with RVR, and presented the ED for assessment. EKG did confirm A- fib with RVR. He was started empirically on diltiazem 25 potassium mg IV push and Cardizem drip at 5 mg/h, which I asked the ED to discontinue due to him being on metoprolol succinate already. His blood pressure did drop to systolic of 85, but did improve after being off of the diltiazem drip. He reports his bronchitis is improving somewhat but still has production of greenish sputum.. Potassium was 3.4, magnesium 1.7 on initial labs. Received Klor-Con 40 mill equivalents p.o. and 1K rider 10 mill equivalents IV x 1. Was also given magnesium sulfate 1 g IV. Patient referred for evaluation for admission. Atrial fibrillation with RVR/hypokalemia/hypomagnesemia - patient converted to NSR around 8:30AM morning of discharge. HR controlled in 80s. Needed Lopressor 5mg IV for rate control overnight, otherwise no concerns. Patient has remained hemodynamically stable since spontaneous conversion, therefore no need for PINKY/cardioversion and stable for d/c. Troponins were elevated 06/12/25 evening at 86.7, 2hr repeat downtrend 57.4. EKG with ST depression, possible concern for underlying CAD. - cardiology consulted through admission and appreciate recommendations - was given digoxin 250mcg push yesterday 06/13/25 and maintained on digoxin 0.125mcg daily - echocardiogram from 06/05/2019 showed ejection fraction 60-65%. Repeat each 06/12/25 EF 55-60% with mild MR and TR, borderline left atrial enlargement. - on discharge, will continue digoxin 0.125mcg po daily, home metoprolol succinate 75 mg po daily - previous [id number] score = 1 , therefore was not put on anticoagulation previously. Score remains 1. Was on heparin drips. aPTT 47. Rest of coag panel wnl. Will start DOAC with Eliquis 5mg po bid on discharge. - electrolytes & Mg remained stable after initial replacement on admission. Community acquired pneumonia - patient was being treated for this in the outpatient setting prior to admission with prednisone 40mg po for 5 days and augmentin 875/125 bid po for 7 days - hx of severe persistent asthma, on Symbicort, Dupixent, and montelukast at home. - hold outpatient steroid regimen, however will continue abx with augmentin 875/125 po bid for a complete 7 day course - CXR negative for acute cardiopulmonary abnormalities Hyperlipidemia - was on rosuvastatin 20mg daily in hospital, however taking atorvastatin 80mg po daily at home. Patient preference of atorvastatin 80mg po daily. - fasting lipid panel: total 170, tri's 82, LDL 92, HDL 62. - LDL goal <70 - high intensity statin as above Hyperglycemia - A1c 5.6% - glucose 160 on admission labs Leukocytosis - resolved - WBC 12.9 on admission labs, likely result of steroid use outpatient and pneumonia - today, WBC 9.9 DVT: heparin drip Dispo: home discharge today. Total Time Total Time Spent Total Time Spent (In Minutes): 40 Discharge Plan Discharge Items Patient Disposition: Home - Self-Care Reason For Visit: ARTIAL FIB WITH RVR, BRONCHITIS Discharge Diagnosis: atrial fibrillation with RVR community acquired pneumonia Condition on Discharge: Good Activity: Resume your previous activity Non-emergency contact: Primary Care Provider Call non-emergency contact if: you have any medication questions Follow-up/Referrals: PCP,NO [Primary Care Provider] - Diet: Regular and Heart Healthy Addtl Attending Provider Instructions: You were admitted to [facility] for treatment of atrial fibrillation. You were treated with a digoxin push and daily oral digoxin. We also continued your home metoprolol succinate 75 mg po daily. You spontaneous converted to normal sinus rhythm around 8:30am on day of discharge. On discharge, continue digoxin 0.125 mcg by mouth daily. You will also be started on direct-oral anticoagulation with Eliquis 5mg by mouth 2 times a day. Medications: NEW: digoxin 0.125 mcg by mouth daily Eliquis 5mg by mouth twice a day Continue your Augmentin course that you were prescribed last week by your PCP. Last dose 06/16/25 Please continue other medications as prescribed. Follow-up with your PCP and Dr. Mckeon within 1-2 weeks from discharge. Please return to care if you develop chest pain, shortness of breath, lightheadedness/dizziness. Pending Studies at Discharge: No Stand-Alone Forms: My [facility], Smoking Cessation Medications and DC Order Prescriptions: New digoxin [Digitek] 125 mcg (0.125 mg) Tablet 0.125 mg PO DAILY@1600 30 Days Qty: 30 0RF Eliquis 5 mg tablet 5 mg PO BID Qty: 30 0RF Continued epinephrine 0.3 mg/0.3 mL auto-injector 0.3 mg IM UD PRN (Reason: Anaphylaxis) Rx Instructions: for 2 doses Probiotic Formula (inulin) 1 billion-250 cell-mg capsule 1 cap PO DAILY magnesium aspartate HCl 61 mg (615 mg) tablet,delayed release (DR/EC) 61 mg PO DAILY budesonide-formoterol [Symbicort] 160-4.5 mcg/actuation HFA aerosol inhaler 2 puff inhalation Q12H bupropion HCl 150 mg tablet extended release 24 hr 150 mg PO QAM chlorthalidone 25 mg tablet 25 mg PO DAILY atorvastatin 80 mg tablet 80 mg PO HS metoprolol succinate 25 mg tablet extended release 24 hr 75 mg PO DAILY Qty: 90 3RF ciclopirox 8 % solution 1 applic TOPICAL DAILY montelukast 10 mg tablet 10 mg PO DAILY PRN (Reason: SOB) cholecalciferol (vitamin D3) [Vitamin D3] 25 mcg (1,000 unit) Capsule 25 mcg PO DAILY ciclopirox 0.77 % cream 1 applic TOPICAL BID Dupixent Pen 300 mg/2 mL pen injector 300 mg SUBCUT DIRECTED Rx Instructions: EVERY OTHER SUNDAY Discharge Orders: Discharge Order (Routine); Ordered 06/14/25 Ordered By: Christelle Taylor Admission Data Admit Date/Time: 06/12/25 06:55 Attending Provider: Sandeep Segura Admit Provider: Eliecer Rene Primary Care Provider: PCP,NO Other Providers: Eliecer Rene; Vivien Reis Supervising Physician Co-Signing Physician Notes Attending attestation Pt seen and examined in concert with Dr. Taylor. In agreement with the documented findings as noted in the resident documentation with any exceptions or additions as noted here. Resting comfortably in bed with resolution of fatigue/lightheadedness/palpitations with mild activity. VS as noted. On examination, S1/S2 nl RRR. CTAB. Abd NT/ND BS+ve. Atrial fibrillation w/ RVR s/p return to sinus rhythm - cardiology consult - transition to apixaban on discharge, continue digoxin and metoprolol 75mg with close follow up with cardiology and primary care team. Community acquired pneumonia - complete course of Augmentin PO Else see resident documentation as noted. Total attending physician time spent with this patient's care on the day of discharge: 35 minutes.
[2025-06-14 16:55] VITALS: PULSE 129
[2025-06-14] MEDS: APIXABAN 5 MG TABLET PO ONE (17:48)
== END 2025-06-14 18:20 | disposition home or self-care (01) | DRG 308 ==
LOC: SUATTDRO → ED 05:00 → SUATTDRO 06:55 → EDINP 06:55 → 2S 08:49